=== PATIENT | female | born 1975 | race Caucasian/White ===

== ENCOUNTER 2019-12-19 12:28 | Emergency (ER) | payer OTHER, BC, SELFPAY ==
--- NOTE | ~2019-12-19 | XR_ITS ---
EXAMINATION: XR lumbar spine 2-3V DATE: 12/19/2019 13:15 INDICATION: Low back pain. Urinary incontinence. TECHNIQUE: Anteroposterior and lateral views of the lumbar spine, and cone-down lateral view of the l umbosacral junction were obtained. COMPARISON: CT abdomen and pelvis dated 11/17/2016 FINDINGS: Alignment is normal. Vertebral body heights are normal. No evident fractures. Mild disc height loss w ith small endplate osteophytes at T11-T12 through L1-L2 and additional mild disc height loss at L4-L5 . Mild bilateral sacroiliac osteoarthritis. Cholecystectomy clips in the right upper quadrant. Partia lly visualized IUD in the pelvis. IMPRESSION: 1. Mild lumbar and lower thoracic spondylosis. Reviewed, dictated and finalized at location A.
[2019-12-19 12:31] VITALS: BP 137/77; PULSE 100; RESP 16; TEMP 36.6; O2SAT 98
--- NOTE | 2019-12-19 12:55 | ED.BACK ---
HPI - Back Pain/Injury General Chief Complaint: Back Pain/Injury Stated Complaint: back pain with bowel/bladder loss of control Time Seen by Provider: 12/19/19 12:45 History of Present Illness HPI Narrative: Patient presents with her for low back pain and fecal incontinence. She had an injury 5 days ago when she was leaning over to the refrigerator to get out her lunch and felt a pop in her low back. She was able to get to her desk and sit down for a while. She gauges the pain as 8 out of 10 at that time. She saw her primary care physician 2 days later and got Vicodin and muscle relaxers. Since then she has had diarrhea with fecal incontinence, and urinary incontinence. She gauges her pain at 5 out of 10 right now. MD elicited complaint: back pain Onset (ago): day(s) (5) Timing: constant Severity: moderate Similar Symptoms Previously: No Quality: sharp Location: lumbar spine Radiation: none Exacerbating factors: movement Relieving factors: none Context: bending Related Data Home Medications Medication Instructions Recorded Confirmed baclofen mg 12/19/19 budesonide [Pulmicort Flexhaler] INHALATION 12/19/19 cetirizine mg 12/19/19 duloxetine mg PO 12/19/19 fluticasone propionate INTRANASAL 12/19/19 gabapentin 12/19/19 hydrocodone-acetaminophen 12/19/19 hydroxyzine HCl 12/19/19 levothyroxine 12/19/19 montelukast mg 12/19/19 omeprazole 12/19/19 ropinirole mg 12/19/19 sertraline mg 12/19/19 ziprasidone HCl 12/19/19 12/19/19 Allergies Allergy/AdvReac Type Severity Reaction Status Date / Time carbamazepine Allergy Unknown Rash Verified 12/19/19 12:36 Sulfa (Sulfonamide Allergy Unknown Rash Verified 12/19/19 12:36 Antibiotics) Review of Systems Review of Systems: Narrative: CONSTITUTIONAL: Denies fever, chills, or sweats. EYES: Denies visual changes, redness, or discharge. ENT: Denies rhinorrhea, congestion, sore throat, or otalgia. CARDIOVASCULAR: Denies chest pain, palpitations, or edema. RESPIRATORY: Denies cough or dyspnea. GASTROINTESTINAL: Denies abdominal pain, nausea, vomiting. She has diarrhea with fecal incontinence. GENITOURINARY: Denies dysuria or hematuria. SKIN: Denies rash or itching. MUSCULOSKELETAL: Denies joint pain, or myalgia. She has lumbar pain. NEUROLOGIC: Denies headache, numbness, or weakness. PSYCHIATRIC: Denies anxiety or depression. [facility] Family History Family History (Updated 11/14/16 @ 16:11 by DOCTOR UNKNOWN) Sibling Family history of rheumatoid arthritis Father Family history of congestive heart failure Other Diabetes mellitus Social History Social History Smoking status: Never smoker Alcohol intake: current Gender identity (if verbalized by the patient): Female Exam Narrative: Exam Narrative: GENERAL: Well-appearing, well-nourished, and in no acute distress. Morbid obesity. HEAD: Normocephalic, atraumatic. EYES: PERRLA and EOMI. ENT: Nares clear, no rhinorrhea or epistaxis. Mucous membranes moist. NECK: Supple. CHEST: Clear to auscultation. No respiratory distress. HEART: Regular rate and rhythm. No murmur heard. Normal peripheral pulses. ABDOMEN: Soft, nontender, nondistended, normal active bowel sounds. Normal rectal exam. EXTREMITIES: Normal range of motion. No edema. Tenderness in the lumbar area. SKIN: Warm, dry, no rash. NEURO: No focal deficits. Alert and oriented x3. PSYCH: Normal mood and affect. Const: General: no acute distress and alert Orientation/consciousness: patient oriented x3 Course Reevaluation(s) Reevaluation #1: I went into the room to explain to the patient and her that there were no compression fractures. I suggested that she had a tear of the tendon or ligament and that would take time to heal. I offered narcotic pain medicine which would also help with the loose stools. I gave her a work note for couple days off. She has a primary care doctor to follow-up with, and possibly g
[2019-12-19] MEDS: MORPHINE SULFATE 4 MG/ML INJ IV PUSH ×2 (13:17→13:59)
[2019-12-19 14:10] VITALS: BP 134/62; PULSE 78; RESP 18
== END 2019-12-19 14:13 | disposition home or self-care (01) ==
PROVIDERS: Emergency Provider Emergency Medicine
DX: R15.9 Full incontinence of feces (principal); R19.7 Diarrhea, unspecified
CPT/HCPCS: 72100; 96374; 96376; 99284; J2270

== ENCOUNTER 2020-03-27 18:05 | Emergency (ER) | payer BC, SELFPAY ==
[2020-03-27 18:07] VITALS: BP 147/83; PULSE 95; RESP 20; TEMP 36.2; O2SAT 100
--- NOTE | 2020-03-27 19:20 | PC.NURSE ---
Bedside report to KISHAN Lange, to continue care.
[2020-03-27 19:21] LABS: Basophils Absolute Auto 0.1 K/mm3 (0.0-0.1); Basophils Percent Auto 0.5 % (0.2-1.2); Eosinophils Absolute Auto 0.4 K/mm3 (0-0.3); Eosinophils Percent Auto 3.2 % (0-4.4); Hematocrit 43.3 % (37.0-47.0); Hemoglobin 14.1 g/dL (12.0-15.0); Immature Granulocyte Absolute 0.03 K/mm3 (0.00-0.031); Immature Granulocyte Percent A 0.2 % (0-0.5); Lymphocytes Absolute Auto 3.25 K/mm3 (0.9-3.2); Lymphocytes Percent Auto 26.6 % (18.3-44.2); Mean Corpuscular HGB Conc 32.6 g/dl (32-36); Mean Corpuscular Hemoglobin 27.7 pg (26-34); Mean Corpuscular Volume 85.1 fl (80-100); Monocytes Absolute Auto 0.8 K/mm3 (0.1-0.6); Monocytes Percent Auto 6.7 % (2.6-8.5); Neutrophils Absolute Auto 7.7 K/mm3 (1.3-6.7); Neutrophils Percent Auto 62.8 % (45.5-73.1); Platelet Count Result 278 k/mm3 (150-375); Red Blood Count 5.09 M/mm3 (4.2-5.4); Red Cell Distribution Width 13.1 % (11.5-14.5); White Blood Count 12.2 K/mm3 (4.5-10.0)
--- NOTE | 2020-03-27 19:29 | PC.NURSE ---
Assumed care of pt at this time. Report from KISHAN Marlow
[2020-03-27 19:33] LABS: Lactic Acid Reflex 1.5 mmol/L (0.7-2.1)
[2020-03-27 19:34] LABS: Alanine Aminotransferase 40 U/L (4-35); Albumin Level 4.8 g/dL (3.5-5.1); Alkaline Phosphatase 91 U/L (38-126); Anion Gap 10 mmol/L (8-16); Aspartate Amino Transferase 43 U/L (14-36); Bilirubin,Total 0.4 mg/dL (0.2-1.3); Blood Urea Nitrogen 10 mg/dL (7-17); Calcium 9.7 mg/dL (8.4-10.2); Carbon Dioxide 27 mmol/L (22-30); Chloride 99 mmol/L (98-107); Estimated Glomerular Filt Rate > 60; Glucose 121 mg/dL (65-105); Potassium 3.7 mmol/L (3.4-5.0); Sodium 136 mmol/L (137-145)
[2020-03-27 19:53] LABS: Erythrocyte Sedimentation Rate 20 mm/hr (0-20)
[2020-03-27 20:00] VITALS: BP 123/66; PULSE 84; RESP 19; O2SAT 100
[2020-03-27] MEDS: TETANUS,DIPHTHERIA,AC PERTUSSIS ADULT (0.5 ML) BOOSTRIX IM (20:04)
--- NOTE | 2020-03-27 20:10 | ED.GENADULT ---
HPI - General Adult General Chief complaint: Wound/Laceration Stated complaint: R LEG WOUND, DIABETIC Time Seen by Provider: 03/27/20 19:23 Source: patient History of Present Illness HPI narrative: Patient is a 44 y/o female complaining of right lower leg pain starting 2 weeks ago. She describes her pain as burning and rates it as 5/10. She states that dangling her foot down aggravates her pain. She has no fever, chills or vomiting. She states that she scratched her leg while shaving prior to onset of pain. Related Data Home Medications Medication Instructions Recorded Confirmed baclofen mg 12/19/19 budesonide [Pulmicort Flexhaler] INHALATION 12/19/19 cetirizine mg 12/19/19 duloxetine mg PO 12/19/19 fluticasone propionate INTRANASAL 12/19/19 gabapentin 12/19/19 hydrocodone-acetaminophen 12/19/19 hydroxyzine HCl 12/19/19 levothyroxine 12/19/19 montelukast mg 12/19/19 omeprazole 12/19/19 ropinirole mg 12/19/19 sertraline mg 12/19/19 ziprasidone HCl 12/19/19 12/19/19 Allergies Allergy/AdvReac Type Severity Reaction Status Date / Time carbamazepine Allergy Unknown Rash Verified 12/19/19 12:36 Sulfa (Sulfonamide Allergy Unknown Rash Verified 12/19/19 12:36 Antibiotics) Review of Systems Constitutional: Constitutional: Denies chills, Denies fever(s), Denies headache(s) and Denies weakness Eyes: Eyes: Denies blurry vision ENT: Denies headache(s) and Denies neck pain Cardiovascular: Cardiovascular: Denies chest pain and Denies dyspnea Respiratory: Respiratory: Denies cough and Denies dyspnea Gastrointestinal: Gastrointestinal: Denies abdominal pain, Denies diarrhea, Denies nausea and Denies vomiting Genitourinary: Genitourinary: Denies hematuria and Denies dysuria Musculoskeletal: Musculoskeletal: Denies back pain and Denies neck pain Integumentary/Breasts: Skin/Breast: Reports wounds (right lower anterior leg wound with redness) Neurologic: Denies headache(s) and Denies weakness [facility] Family History Family History Sibling Family history of rheumatoid arthritis Father Family history of congestive heart failure Other Diabetes mellitus Social History Social History Smoking status: Never smoker Alcohol intake: current Gender identity (if verbalized by the patient): Female Exam Const: General: no acute distress and well developed Orientation/consciousness: oriented to person, oriented to place, oriented to time and patient oriented x3 HENMT: Head: normocephalic Ears: external ears normal General nose exam: Normal external nose present Eyes: General: appearance normal, both eyes and all related structures Conjunctivae: conjunctivae normal Neck: Neck: normal visual inspection and full ROM Chest: Chest palpation & inspection: normal inspection of the chest and no tenderness Resp: Effort & Inspection: normal respiratory effort Auscultation: clear to auscultation bilaterally Cardio: Rate: regular rate Rhythm: regular rhythm GI: GI Palp: No abdominal tenderness and Yes Soft to palpation Skin: General skin exam: normal color, turgor normal and erythema (right lower leg erythema surrounding the wound) Wounds: wounds noted (anterior aspect of right lower leg, no drainage) Neuro: General: oriented to person, oriented to place, oriented to time and patient oriented x3 Cognition (Neuro): normal cognition Extrem: General: normal to inspection, full ROM and no pedal edema Psych: Appearance: grossly normal Mental Status: mental status grossly normal Affect: normal affect Course Vital Signs Vital signs: Vital Signs Temperature 36.2 C L 03/27/20 18:07 Pulse Rate 95 03/27/20 18:07 Respiratory Rate 20 03/27/20 18:07 Blood Pressure 147/83 H 03/27/20 18:07 Pulse Oximetry 100 03/27/20 18:07 Temperature 36.2 C L 03/27/20 18:07 Pulse Rate 84
[2020-03-27 21:00] VITALS: BP 130/62; PULSE 84; RESP 19; O2SAT 99
[2020-03-27] MEDS: KETOROLAC 30 MG/ML VIAL (*BKC) IV PUSH (21:31)
[2020-03-27 21:50] VITALS: BP 120/64; PULSE 84; RESP 19; O2SAT 98
== END 2020-03-27 21:50 | disposition home or self-care (01) ==
PROVIDERS: Emergency Provider Emergency Medicine
DX: L03.115 Cellulitis of right lower limb (principal); Z23 Encounter for immunization
CPT/HCPCS: 36415; 80053; 83605; 85025; 85652; 87040; 90471; 90715; 96365; 96375; 99284; J1885; J3370

== ENCOUNTER 2020-04-23 09:54 | Emergency (ER) | payer BC, SELFPAY ==
--- NOTE | ~2020-04-23 | XR_ITS ---
XR chest 1V portable DATE: 04/23/2020 10:24 INDICATION: Shortness of breath. Covid-positive patient. TECHNIQUE: Portable AP chest on 04/23/2020 at 1016 hours COMPARISON: 01/04/2019 PA and lateral chest FINDINGS: There are patchy bilateral infiltrates involving the mid and lower lung zones. Heart size is likely within normal range considering magnification associated with AP projection. There is chronic mild elevation of the right leaf of the diaphragm. No pleural effusion or pneumothor ax is evident. IMPRESSION: Patchy bilateral mid and lower lung infiltrates Reviewed, dictated and finalized at location A.
[2020-04-23 10:00] VITALS: BP 126/76; PULSE 90; RESP 22; TEMP 36.6; O2SAT 96
[2020-04-23 10:03] VITALS: O2SAT 97
--- NOTE | 2020-04-23 10:04 | ECG_ITS ---
Measurements Intervals [place] Rate: 91 P: 49 ND: 130 QRS: 41 QRSD: 101 T: -18 QT: 343 QTc: 423 Interpretive Statements SINUS RHYTHM BORDERLINE ST-T WAVE ABNORMALITY- ANTEROLAT/INF LEADS BASELINE WANDER- III, AVF BORDERLINE ECG Electronically Signed On 04-23-2020 14:57:31 CDT by Bala Banuelos D.O.
--- NOTE | 2020-04-23 10:25 | ED.GENADULT ---
HPI - General Adult General Chief complaint: Shortness of Breath/Dyspnea Stated complaint: + covid/SOB Time Seen by Provider: 04/23/20 09:58 Source: patient Mode of arrival: ambulatory Limitations: no limitations History of Present Illness HPI narrative: Patient is a 44-year-old female who presents to emergency department for continued COVID symptoms patient had been admitted and the ninth at an outside hospital with COVID and has been home and now she continues to feel weak dyspneic with headache and some loose stools. Patient has been taking medications as instructed. Patient denies vomiting. Patient lives at home with family Related Data Home Medications Medication Instructions Recorded Confirmed baclofen mg 12/19/19 budesonide [Pulmicort Flexhaler] INHALATION 12/19/19 cetirizine mg 12/19/19 duloxetine mg PO 12/19/19 fluticasone propionate INTRANASAL 12/19/19 gabapentin 12/19/19 hydrocodone-acetaminophen 12/19/19 hydroxyzine HCl 12/19/19 levothyroxine 12/19/19 montelukast mg 12/19/19 omeprazole 12/19/19 ropinirole mg 12/19/19 sertraline mg 12/19/19 ziprasidone HCl 12/19/19 12/19/19 Allergies Allergy/AdvReac Type Severity Reaction Status Date / Time carbamazepine Allergy Unknown Rash Verified 04/23/20 10:03 Sulfa (Sulfonamide Allergy Unknown Rash Verified 04/23/20 10:03 Antibiotics) Review of Systems Review of Systems: All systems reviewed & are unremarkable except as noted in HPI and below PMFSH Past Medical History Medical History (Updated 04/23/20 @ 12:08 by Shreyas Yin PA-C) Asthma Diabetes mellitus Fecal incontinence Lumbar pain Morbid obesity Family History Family History Sibling Family history of rheumatoid arthritis Father Family history of congestive heart failure Other Diabetes mellitus Social History Social History Smoking status: Never smoker Alcohol intake: current Gender identity (if verbalized by the patient): Female Exam Narrative: Exam Narrative: GENERAL: Well-appearing, morbid obesity, and in no acute distress. HEAD: Normocephalic, atraumatic. EYES: PERRLA and EOMI. ENT: Nares clear, no rhinorrhea or epistaxis. Mucous membranes moist. Oropharynx without tonsillar hypertrophy exudate or other lesions. NECK: Supple. No adenopathy or masses. CHEST: Diminished on auscultation. No respiratory distress. No wheezes rales or rhonchi HEART: Regular rate and rhythm. No murmur heard. Normal peripheral pulses. ABDOMEN: Soft, nontender, nondistended EXTREMITIES: Normal range of motion. No edema. SKIN: Warm, dry, no rash. NEURO: No focal deficits. Alert and oriented x3. Cranial nerves II through XII grossly intact PSYCH: Normal mood and affect. Course Course Emergency Course: Patient in the room in no distress resting comfortably no hypoxemia able to ambulate without becoming hypoxic. Patient will be discharged home will contact her primary care to set up for reevaluation. Patient was hydrated in the emergency department. Vital Signs Vital signs: Vital Signs Temperature 97.8 F 04/23/20 10:00 Pulse Rate 90 04/23/20 10:00 Respiratory Rate 22 H 04/23/20 10:00 Blood Pressure 126/76 04/23/20 10:00 Pulse Oximetry 96 04/23/20 10:00 Temperature 97.8 F 04/23/20 10:00 Pulse Rate 90 04/23/20 10:00 Respiratory Rate 22 H 04/23/20 10:00 Blood Pressure 126/76 04/23/20 10:00 Pulse Oximetry 97 04/23/20 10:03 Medical Decision Making [facility] Narrative Medical decision making narrative: Patient with COVID no concerning findings in the evaluation today patient able to ambulate without hypoxemia will be discharged home with instructions to quarantine at home and follow with primary care also given reasons to return patient is afebrile nontoxic-appearing in no distress without emesis Vital Signs Vital Sign
[2020-04-23 10:31] LABS: Basophils Percent Auto 0.3 % (0.2-1.2); Eosinophils Absolute Auto 0.1 K/mm3 (0-0.3); Eosinophils Percent Auto 1.1 % (0-4.4); Hematocrit 44.7 % (37.0-47.0); Hemoglobin 14.4 g/dL (12.0-15.0); Immature Granulocyte Absolute 0.03 K/mm3 (0.00-0.031); Immature Granulocyte Percent A 0.5 % (0-0.5); Lymphocytes Absolute Auto 1.53 K/mm3 (0.9-3.2); Lymphocytes Percent Auto 24.8 % (18.3-44.2); Mean Corpuscular HGB Conc 32.2 g/dl (32-36); Mean Corpuscular Hemoglobin 27.5 pg (26-34); Mean Corpuscular Volume 85.5 fl (80-100); Mean Platelet Volume 11.3 fl (7.4-10.4); Monocytes Absolute Auto 0.5 K/mm3 (0.1-0.6); Monocytes Percent Auto 7.8 % (2.6-8.5); Neutrophils Absolute Auto 4.1 K/mm3 (1.3-6.7); Neutrophils Percent Auto 65.5 % (45.5-73.1); Platelet Count Result 176 k/mm3 (150-375); Red Blood Count 5.23 M/mm3 (4.2-5.4); Red Cell Distribution Width 13.2 % (11.5-14.5); White Blood Count 6.2 K/mm3 (4.5-10.0)
[2020-04-23] MEDS: SODIUM CHLORIDE 0.9% IV 1,000 ML 999 ML IV CONT (10:35)
[2020-04-23 10:44] LABS: Lactic Acid Reflex 1.6 mmol/L (0.7-2.1)
[2020-04-23 10:51] LABS: Anion Gap 6 mmol/L (8-16); Blood Urea Nitrogen 10 mg/dL (7-17); CRP 4.7 mg/dL (<1.0); Calcium 9.1 mg/dL (8.4-10.2); Carbon Dioxide 28 mmol/L (22-30); Chloride 102 mmol/L (98-107); Estimated CRCL calculation 148 ml/min; Estimated Glomerular Filt Rate > 60; Glucose 164 mg/dL (65-105); Potassium 3.8 mmol/L (3.4-5.0); Sodium 136 mmol/L (137-145)
[2020-04-23 11:00] LABS: Troponin I < 0.012 ng/mL (0.000-0.034)
--- NOTE | 2020-04-23 12:06 | PC.NURSE ---
Pt ambulated to restroom and returned,spo2 remained at or above 95%.
[2020-04-23 12:07] VITALS: BP 144/90; PULSE 99; RESP 24; O2SAT 99
== END 2020-04-23 12:26 | disposition home or self-care (01) ==
PROVIDERS: Emergency Medicine Emergency Medical Services; Emergency Provider Emergency Medicine
DX: U07.1 COVID-19 (principal); E11.9 Type 2 diabetes mellitus without complications; E66.01 Morbid (severe) obesity due to excess calories; Z68.43 Body mass index [BMI] 50.0-59.9, adult; R94.31 Abnormal electrocardiogram [ECG] [EKG]
CPT/HCPCS: 36415; 71045; 80048; 83605; 84484; 85025; 86140; 93005; 96360; 99284; J7030

== ENCOUNTER 2020-08-10 20:10 | Emergency (ER) | payer BC, SELFPAY ==
--- NOTE | ~2020-08-10 | XR_ITS ---
EXAMINATION: XR foot RT min 3V EXAM DATE: 08/10/2020 20:35 INDICATION: Kicked contour yesterday, pain right 2nd 3rd 4th toes. TECHNIQUE: Right foot dorsoplantar, lateral and oblique projections obtained and reviewed. Compariso n is made to prior examination from 11/04/2016. FINDINGS: Right metatarsal bones unremarkable. There are no acute fractures or dislocations identifi ed. There is no subcutaneous gas. The soft tissue is unremarkable. There are no radiopaque foreig n bodies. IMPRESSION: 1. Right foot exam without acute osseous findings. Reviewed, dictated and finalized at location G. [employer]
[2020-08-10 20:13] VITALS: BP 135/82; PULSE 91; RESP 18; TEMP 35.7; O2SAT 100
--- NOTE | 2020-08-10 20:53 | ED.LOWEXIN ---
HPI - Extremity Injury (Lower) General Chief Complaint: Extremity Injury, Lower Stated Complaint: poss broken toes Time Seen by Provider: 08/10/20 20:20 Source: patient Mode of arrival: ambulatory Limitations: no limitations History of Present Illness HPI Narrative: 45-year-old with a history of diabetes here with complaints of injury to the right toes. Patient states that she accidentally hit the filing cabinet yesterday at work. She complains of second third fourth toe pain. She is able to walk . complaint: foot injury (right) Onset (ago): day(s) (1) Injury: Right: foot Type of Injury: blunt Place: work Relieving factors: nothing Exacerbating factors: nothing Context: direct blow Related Data Home Medications Medication Instructions Recorded Confirmed baclofen mg 12/19/19 budesonide [Pulmicort Flexhaler] INHALATION 12/19/19 cetirizine mg 12/19/19 duloxetine mg PO 12/19/19 fluticasone propionate INTRANASAL 12/19/19 gabapentin 12/19/19 hydrocodone-acetaminophen 12/19/19 hydroxyzine HCl 12/19/19 levothyroxine 12/19/19 montelukast mg 12/19/19 omeprazole 12/19/19 ropinirole mg 12/19/19 sertraline mg 12/19/19 ziprasidone HCl 12/19/19 12/19/19 Allergies Allergy/AdvReac Type Severity Reaction Status Date / Time carbamazepine Allergy Unknown Rash Verified 08/10/20 20:15 Sulfa (Sulfonamide Allergy Unknown Rash Verified 08/10/20 20:15 Antibiotics) Review of Systems Review of Systems: All systems reviewed & are unremarkable except as noted in HPI and below Constitutional: Constitutional: Reports no additional constitutional complaints Eyes: Eyes: Reports no additional eye complaints ENT: Reports system reviewed and no additional complaints, except as documented Cardiovascular: Cardiovascular: Reports no additional cardiovascular complaints Respiratory: Respiratory: Reports no additional respiratory complaints Gastrointestinal: Gastrointestinal: Reports no additional gastrointestinal complaints Musculoskeletal: Musculoskeletal: Reports as per HPI Neurologic: Reports system reviewed and no additional complaints, except as documented [facility] Past Medical History Medical History Asthma Diabetes mellitus Fecal incontinence Lumbar pain Morbid obesity Family History Family History Sibling Family history of rheumatoid arthritis Father Family history of congestive heart failure Other Diabetes mellitus Social History Social History Smoking status: Never smoker Alcohol intake: current Gender identity (if verbalized by the patient): Female Exam Narrative: Exam Narrative: GENERAL: Well-appearing,, and in no acute distress. HEAD: Normocephalic, atraumatic. EYES: PERRLA and EOMI NECK: Supple. CHEST: Clear to auscultation. No respiratory distress. HEART: Regular rate and rhythm. No murmur heard. Normal peripheral pulses.. EXTREMITIES: Normal range of motion. No edema. Examination of the right foot shows no evidence of any trauma ,no deformity SKIN: Warm, dry, no rash. NEURO: No focal deficits. Alert and oriented x3. PSYCH: Normal mood and affect. Course Course Emergency Course: Inform patient about her x-ray findings. Advised her to take Tylenol ibuprofen for pain. Vital Signs Vital signs: Vital Signs Temperature 35.7 C L 08/10/20 20:13 Pulse Rate 91 08/10/20 20:13 Respiratory Rate 18 08/10/20 20:13 Blood Pressure 135/82 08/10/20 20:13 Pulse Oximetry 100 08/10/20 20:13 Temperature 35.7 C L 08/10/20 20:13 Pulse Rate 91 08/10/20 20:13 Respiratory Rate 18 08/10/20 20:13 Blood Pressure 135/82 08/10/20 20:13 Pulse Oximetry 100 08/10/20 20:13 MDM - Extremity Injury (Lower) Imaging Data Radiologist's impression: ITS Impressions Foot X-Ray 08/10/20 20:36 IMPR
== END 2020-08-10 21:15 | disposition home or self-care (01) ==
PROVIDERS: Emergency Provider Family Medicine
DX: S90.121A Contusion of right lesser toe(s) without damage to nail, initial encounter (principal); W22.8XXA Striking against or struck by other objects, initial encounter; J45.909 Unspecified asthma, uncomplicated; E11.9 Type 2 diabetes mellitus without complications; E66.01 Morbid (severe) obesity due to excess calories; Z68.43 Body mass index [BMI] 50.0-59.9, adult
CPT/HCPCS: 73630; 99283

== ENCOUNTER 2021-11-30 18:14 | Emergency (ER) | payer BC, SELFPAY ==
--- NOTE | ~2021-11-30 | XR_ITS ---
EXAMINATION: XR foot LT min 3V DATE: 11/30/2021 18:56 INDICATION: Left foot pain, swelling and bruising post injury TECHNIQUE: Dorsoplantar, two oblique and lateral views of the chest foot were obtained. COMPARISON: None. FINDINGS: Alignment is normal. No fracture. Minimal to mild polyarticular osteoarthritis involving multiple kenroy nts in the mid and forefoot. Soft tissues are unremarkable. IMPRESSION: 1. No acute osseous abnormality. Reviewed, dictated and finalized at location A.
[2021-11-30 18:29] VITALS: BP 121/69; PULSE 79; RESP 16; TEMP 36.2; O2SAT 100
--- NOTE | 2021-11-30 19:15 | ED.LOWEXIN ---
HPI - Extremity Injury (Lower) General Chief Complaint: Extremity Injury, Lower Stated Complaint: toe pain Time Seen by Provider: 11/30/21 18:40 Source: patient History of Present Illness HPI Narrative: Patient presents with left fifth toe pain. Patient reports she was putting her shoes on in the middle the night slipped and struck her small toe into the ground she was monitoring her symptoms at home and was waiting for a ride to be evaluated in the ER. Reports over the course of the day her pain is getting progressively worse that is achy, constant, worse with walking around, radiated up her foot. She has any focal numbness or weakness. She was concerned that maybe she broke her toe Related Data Home Medications Medication Instructions Recorded Confirmed baclofen mg 12/19/19 budesonide [Pulmicort Flexhaler] INHALATION 12/19/19 cetirizine mg 12/19/19 duloxetine mg PO 12/19/19 fluticasone propionate INTRANASAL 12/19/19 gabapentin 12/19/19 hydrocodone-acetaminophen 12/19/19 hydroxyzine HCl 12/19/19 levothyroxine 12/19/19 montelukast mg 12/19/19 omeprazole 12/19/19 ropinirole mg 12/19/19 sertraline mg 12/19/19 ziprasidone HCl 12/19/19 12/19/19 Allergies Allergy/AdvReac Type Severity Reaction Status Date / Time carbamazepine Allergy Unknown Rash Verified 11/30/21 18:40 Sulfa (Sulfonamide Allergy Unknown Rash Verified 11/30/21 18:40 Antibiotics) Review of Systems Review of Systems: CONSTITUTIONAL: Denies fever, chills, or sweats. EYES: Denies visual changes, redness, or discharge. SKIN: Reports bruising to her left foot MUSCULOSKELETAL: Denies back pain, joint pain, or myalgia. NEUROLOGIC: Denies headache, numbness, dizziness, or weakness. PSYCHIATRIC: Denies anxiety or depression. [facility] Past Medical History Medical History Asthma Diabetes mellitus Fecal incontinence Lumbar pain Morbid obesity Family History Family History Sibling Family history of rheumatoid arthritis Father Family history of congestive heart failure Other Diabetes mellitus Social History Social History Smoking status: Never smoker Alcohol intake: current Gender identity (if verbalized by the patient): Female Exam Narrative: GENERAL: Well-appearing, well-nourished, and in no acute distress. HEAD: Normocephalic, atraumatic. EYES: PERRLA and EOMI. ENT: Nares clear, no rhinorrhea or epistaxis. Mucous membranes moist. EXTREMITIES: Normal range of motion. No edema. Ecchymosis noted to the fifth digit left foot with diffuse tenderness no obvious deformity SKIN: Warm, dry, no rash. NEURO: No focal deficits. Alert and oriented x3. PSYCH: Normal mood and affect. Course Reevaluation(s) Reevaluation #1: Patient resting comfortably results and plan reviewed with patient. Patient is comfortable outpatient plan. Date: 11/30/21 Time: 19:17 Vital Signs Vital signs: Vital Signs Temperature 36.2 C L 11/30/21 18:29 Pulse Rate 79 11/30/21 18:29 Respiratory Rate 16 11/30/21 18:29 Blood Pressure 121/69 11/30/21 18:29 Pulse Oximetry 100 11/30/21 18:29 Temperature 36.2 C L 11/30/21 18:29 Pulse Rate 79 11/30/21 18:29 Respiratory Rate 16 11/30/21 18:29 Blood Pressure 121/69 11/30/21 18:29 Pulse Oximetry 100 11/30/21 18:29 MDM - Extremity Injury (Lower) MDM Narrative Medical decision making narrative: H&P as above, vss, pt looks clinically well, exam without obvious deformity or focal neurological deficits, imaging without acute process, additional labs/img considered, symptomatic relief available as needed, on reevaluation pt continues to looks clinically well. Suspect soft tissue contusion, dns fracture, dislocation, major neurovascular compromise plan to tx/monitor as op w/ pcm f/u findings/plan discussed with pt,
== END 2021-11-30 19:35 | disposition home or self-care (01) ==
PROVIDERS: Emergency Provider Emergency Medicine
DX: S90.122A Contusion of left lesser toe(s) without damage to nail, initial encounter (principal); J45.909 Unspecified asthma, uncomplicated; E11.9 Type 2 diabetes mellitus without complications; E66.01 Morbid (severe) obesity due to excess calories; Z68.43 Body mass index [BMI] 50.0-59.9, adult; W22.8XXA Striking against or struck by other objects, initial encounter
CPT/HCPCS: 73630; 99283

== ENCOUNTER 2021-12-15 14:15 | Emergency (ER) | payer BC, SELFPAY ==
--- NOTE | ~2021-12-15 | XR_ITS ---
XR toe 2nd LT min 2V DATE: 12/15/2021 14:31 INDICATION: Second toe injury TECHNIQUE: 4 views COMPARISON: 11/30/2021 left foot FINDINGS: No fracture or dislocation, periosteal reaction or IMPRESSION: No significant abnormality Reviewed, dictated and finalized at location A. IMPRESSION: No significant abnormality
--- NOTE | 2021-12-15 14:35 | ED.GENADULT ---
HPI - General Adult General Chief complaint: Unspecified Stated complaint: left 2nd toe injury Time Seen by Provider: 12/15/21 14:20 History of Present Illness HPI narrative: 46-year-old female presents to the emergency room for evaluation of a possible patient left second toe. Patient denies injury or trauma. Patient noted that her toes looked kind of weird this morning when she woke up. Patient states she is got a history of neuropathy and fibromyalgia, and so sometimes cannot feel pain. Patient states that she is got full range of motion of her toe. Related Data Home Medications Medication Instructions Recorded Confirmed baclofen mg 12/19/19 budesonide [Pulmicort Flexhaler] INHALATION 12/19/19 cetirizine mg 12/19/19 duloxetine mg PO 12/19/19 fluticasone propionate INTRANASAL 12/19/19 gabapentin 12/19/19 hydrocodone-acetaminophen 12/19/19 hydroxyzine HCl 12/19/19 levothyroxine 12/19/19 montelukast mg 12/19/19 omeprazole 12/19/19 ropinirole mg 12/19/19 sertraline mg 12/19/19 ziprasidone HCl 12/19/19 12/19/19 Allergies Allergy/AdvReac Type Severity Reaction Status Date / Time carbamazepine Allergy Unknown Rash Verified 11/30/21 18:40 Sulfa (Sulfonamide Allergy Unknown Rash Verified 11/30/21 18:40 Antibiotics) Review of Systems Review of Systems: CONSTITUTIONAL: Denies fever, chills, or sweats. EYES: Denies visual changes, redness, or discharge. ENT: Denies rhinorrhea, congestion, sore throat, or otalgia. CARDIOVASCULAR: Denies chest pain, palpitations, or edema. RESPIRATORY: Denies cough or dyspnea. GASTROINTESTINAL: Denies abdominal pain, nausea, vomiting, or diarrhea. GENITOURINARY: Denies dysuria or hematuria. SKIN: Denies rash or itching. MUSCULOSKELETAL: Reports left toe dislocation NEUROLOGIC: Denies headache, numbness, dizziness, or weakness. PSYCHIATRIC: Denies anxiety or depression. [facility] Past Medical History Medical History Asthma Diabetes mellitus Fecal incontinence Lumbar pain Morbid obesity Family History Family History Sibling Family history of rheumatoid arthritis Father Family history of congestive heart failure Other Diabetes mellitus Social History Social History Smoking status: Never smoker Alcohol intake: current Gender identity (if verbalized by the patient): Female Exam Narrative: GENERAL: Well-appearing, well-nourished, and in no acute distress. HEAD: Normocephalic, atraumatic. EYES: PERRLA and EOMI. CHEST: Clear to auscultation. No respiratory distress. No wheezes rales or rhonchi HEART: Regular rate and rhythm. No murmur heard. Normal peripheral pulses. ABDOMEN: Soft, nontender, obese, nondistended, normal active bowel sounds. EXTREMITIES: Normal range of motion. No edema. Left foot, second toe: No acute bony abnormality. No obvious subluxation. No ecchymosis. Neurovascular is intact SKIN: Warm, dry, no rash. NEURO: No focal deficits. Alert and oriented x3. PSYCH: Normal mood and affect. Discharge Plan Discharge Clinical Impression: Injury of left toe Qualifiers: Encounter type: initial encounter Qualified Code(s): S99.922A - Unspecified injury of left foot, initial encounter Patient Disposition: Home, Self-Care Condition: Stable Instructions: Antibiotic Form, Metatarsalgia (DC) Prescriptions: No Action cetirizine 10 mg tablet RF: 0 hydrocodone-acetaminophen 5-325 mg tablet RF: 0 ropinirole 3 mg tablet RF: 0 sertraline 100 mg tablet RF: 0 baclofen 10 mg tablet RF: 0 levothyroxine 50 mcg tablet RF: 0 gabapentin 300 mg capsule RF: 0 omeprazole 20 mg capsule,delayed release(DR/EC) RF: 0 montelukast 10 mg tablet RF: 0 hydroxyzine HCl 25 mg tablet
== END 2021-12-15 15:02 | disposition home or self-care (01) ==
PROVIDERS: Emergency Provider Nurse Practitioner Family
DX: S99.922A Unspecified injury of left foot, initial encounter (principal); E11.40 Type 2 diabetes mellitus with diabetic neuropathy, unspecified; J45.909 Unspecified asthma, uncomplicated; E66.01 Morbid (severe) obesity due to excess calories; Z68.42 Body mass index [BMI] 45.0-49.9, adult; M79.7 Fibromyalgia; X58.XXXA Exposure to other specified factors, initial encounter
CPT/HCPCS: 73660; 99283

== ENCOUNTER 2024-03-27 00:05 | Emergency (ER) | payer BC, SELFPAY ==
--- NOTE | ~2024-03-27 | XR_ITS ---
EXAMINATION: XR toe 5th RT min 2V DATE: 03/27/2024 02:53 INDICATION: Right fifth toe pain. TECHNIQUE: 3 views of right fifth toe were obtained. COMPARISON: Right foot radiographs 08/10/2020 FINDINGS: Bone alignment is normal. No acute fracture. There is an old healed fracture of tuft of fif th distal phalanx. There is mild osteoarthritis of fifth distal interphalangeal joint. IMPRESSION: 1. No acute fracture. Reviewed, dictated and finalized at location A. IMPRESSION: 1. No acute fracture.
[2024-03-27 00:09] VITALS: BP 123/63; PULSE 74; RESP 18; TEMP 36.6; O2SAT 99
[2024-03-27] MEDS: HYDROcodone/acetaminophen (*CRX) 5-325 MG TABLET 1 TAB PO (04:06)
--- NOTE | 2024-03-27 04:35 | ED.GENADULT ---
HPI - General Adult General Chief complaint: Extremity Problem,Nontraumatic Stated complaint: toe pain Time Seen by Provider: 03/27/24 03:47 History of Present Illness HPI narrative: patient is 48-year-old female who presents emergency department with chief complaint of right 5th toe ulceration. The patient reports that she had some friction between her 4th and 5th digit and reports she has a small ulceration the patient reports she has seen her mate fourth but reports the area is painful. Patient reports no new trauma denies foreign body Related Data Home Medications Medication Instructions Recorded Confirmed baclofen 10 mg tablet mg 12/19/19 budesonide 90 mcg/actuation breath inhalation 12/19/19 activated powder inhaler (Pulmicort Flexhaler) cetirizine 10 mg tablet mg 12/19/19 duloxetine 20 mg capsule,delayed mg PO 12/19/19 release fluticasone propionate 50 intranasal 12/19/19 mcg/actuation nasal spray,suspension gabapentin 300 mg capsule 12/19/19 hydrocodone 5 mg-acetaminophen 325 12/19/19 mg tablet hydroxyzine HCl 25 mg tablet 12/19/19 levothyroxine 50 mcg tablet 12/19/19 montelukast 10 mg tablet mg 12/19/19 omeprazole 20 mg capsule,delayed 12/19/19 release ropinirole 3 mg tablet mg 12/19/19 sertraline 100 mg tablet mg 12/19/19 ziprasidone HCl 60 mg capsule 12/19/19 12/19/19 Allergies Allergy/AdvReac Type Severity Reaction Status Date / Time carbamazepine Allergy Unknown Rash Verified 11/30/21 18:40 Sulfa (Sulfonamide Allergy Unknown Rash Verified 11/30/21 18:40 Antibiotics) amoxicillin Allergy Rash Verified 03/27/24 04:54 cephalexin Allergy Rash Verified 03/27/24 04:54 ciprofloxacin Allergy Rash Verified 03/27/24 04:54 doxycycline AdvReac Rash Verified 03/27/24 04:54 Review of Systems Review of Systems: A 10 system review of systems was completed on the patient and is negative except for what is stated in the HPI. Nursing and ancillary documentation was reviewed. [facility] Past Medical History Medical History Asthma Diabetes mellitus Fecal incontinence Lumbar pain Morbid obesity Family History Family History Sibling Family history of rheumatoid arthritis Father Family history of congestive heart failure Other Diabetes mellitus Social History Social History Smoking status: Never smoker Alcohol intake: current Gender identity (if verbalized by the patient): Female Exam Narrative: GENERAL: Well-appearing, well-nourished, and in no acute distress. HEAD: Normocephalic, atraumatic. EYES: PERRLA and EOMI. ENT: Nares clear, no rhinorrhea or epistaxis. Mucous membranes moist. NECK: Supple. CHEST: Clear to auscultation. No respiratory distress. HEART: Regular rate and rhythm. No murmur heard. Normal peripheral pulses. ABDOMEN: Soft, nontender, nondistended, normal active bowel sounds. EXTREMITIES: Normal range of motion. No edema. SKIN: Warm, dry, no rash. small ulceration present in the medial aspect of the left 5th digit of the right foot. There is no purulent drainage there is no crepitance there is no necrotic tissue NEURO: No focal deficits. Alert and oriented x3. PSYCH: Normal mood and affect. Course Vital Signs Vital signs: Vital Signs Temperature 36.6 C 03/27/24 00:09 Pulse Rate 74 03/27/24 00:09 Respiratory Rate 18 03/27/24 00:09 Blood Pressure 123/63 03/27/24 00:09 Pulse Oximetry 99 03/27/24 00:09 Oxygen Delivery Room Air 03/27/24 00:09 Temperature 36.6 C 03/27/24 00:09 Pulse Rate 62 03/27/24 04:51 Respiratory Rate 14 03/27/24 04:51 Blood Pressure 96/70 L 03/27/24 04:51 Pulse Oximetry 100 03/27/24 04:51 Oxygen Delivery Room Air 03/27/24 00:09 Medical Decision Making MDM Narrat
[2024-03-27 04:51] VITALS: BP 96/70; PULSE 62; RESP 14; O2SAT 100
[2024-03-27 04:57] LABS: Glucose Point of Care 73 mg/dl (65-105)
== END 2024-03-27 05:10 | disposition home or self-care (01) ==
PROVIDERS: Emergency Provider Emergency Medicine
DX: E11.621 Type 2 diabetes mellitus with foot ulcer (principal); L97.529 Non-pressure chronic ulcer of other part of left foot with unspecified severity; J45.909 Unspecified asthma, uncomplicated; E66.01 Morbid (severe) obesity due to excess calories; Z68.29 Body mass index [BMI] 29.0-29.9, adult; Z79.899 Other long term (current) drug therapy
CPT/HCPCS: 73660; 82948; 99283; A9270

== ENCOUNTER 2024-05-19 03:36 | Emergency (ER) | payer BC, SELFPAY ==
[2024-05-19 03:36] VITALS: BP 107/75; PULSE 61; RESP 11; TEMP 36.4; O2SAT 100
--- NOTE | 2024-05-19 04:00 | ED.FALL ---
HPI - Fall General Chief Complaint: Fall Stated Complaint: R face and hip pain s/p fall Time Seen by Provider: 05/19/24 03:38 History of Present Illness HPI Narrative: Patient is a 48-year-old female who presents to the emergency department this morning status post fall that occurred at home. Patient states that she slipped on something on the ground and fell forward landing on her right side. Patient admits that she did hit the right side of her head on the ground. Patient is currently complaining of right-sided jaw pain and right hip pain. Patient states that she was able to get herself back up and walk after the fall without any difficulty. Complains that the right hip pain is mild and feels as though she may have just bruised her lateral right upper thigh. Patient admits that walking and putting weight on her right lower extremity does not illicit pain. Patient denies any loss of consciousness and denies any near syncopal episodes stating that she was not lightheaded or dizzy prior to the fall admitting that the fall is purely mechanical. Patient denies any additional symptoms or concerns at this time. Related Data Home Medications Medication Instructions Recorded Confirmed baclofen 10 mg tablet mg 12/19/19 budesonide 90 mcg/actuation breath inhalation 12/19/19 activated powder inhaler (Pulmicort Flexhaler) cetirizine 10 mg tablet mg 12/19/19 duloxetine 20 mg capsule,delayed mg PO 12/19/19 release fluticasone propionate 50 intranasal 12/19/19 mcg/actuation nasal spray,suspension gabapentin 300 mg capsule 12/19/19 hydrocodone 5 mg-acetaminophen 325 12/19/19 mg tablet hydroxyzine HCl 25 mg tablet 12/19/19 levothyroxine 50 mcg tablet 12/19/19 montelukast 10 mg tablet mg 12/19/19 omeprazole 20 mg capsule,delayed 12/19/19 release ropinirole 3 mg tablet mg 12/19/19 sertraline 100 mg tablet mg 12/19/19 ziprasidone HCl 60 mg capsule 12/19/19 12/19/19 Allergies Allergy/AdvReac Type Severity Reaction Status Date / Time carbamazepine Allergy Unknown Rash Verified 05/19/24 03:43 Sulfa (Sulfonamide Allergy Unknown Rash Verified 05/19/24 03:43 Antibiotics) amoxicillin Allergy Rash Verified 05/19/24 03:43 cephalexin Allergy Rash Verified 05/19/24 03:43 ciprofloxacin Allergy Rash Verified 05/19/24 03:43 doxycycline AdvReac Rash Verified 05/19/24 03:43 Review of Systems Review of Systems: All systems are reviewed and are negative unless stated otherwise in the HPI. [facility] Past Medical History Medical History Asthma Diabetes mellitus Fecal incontinence Lumbar pain Morbid obesity Family History Family History Sibling Family history of rheumatoid arthritis Father Family history of congestive heart failure Other Diabetes mellitus Social History Social History Smoking status: Never smoker Alcohol intake: current Gender identity (if verbalized by the patient): Female Exam Narrative: General: Alert, awake, afebrile, in no acute distress. HEENT: PERRL, no rhinorrhea, no post nasal drip, oropharynx clear. Cardiovascular: Regular rate and rhythm, no murmurs, rubs or gallops, no peripheral edema. Respiratory: Clear to auscultation bilaterally, no tachypnea, no wheezing, no rhonchi, no rubs, no respiratory distress. Abdomen: Soft, nontender, nondistended, no rebound, no guarding, no peritoneal signs. Musculoskeletal: No joint swelling or deformity, normal muscle tone, no midline tenderness to palpation over the cervical, thoracic or lumbar spine, no step-offs or deformities, intact bilateral lower extremity hip flexion the knee extensions without any pain. Skin: No rashes or petechia, no signs of infection. Psychiatric: Alert and oriented, normal behavior and judgment for situation. Neurological: Alert
--- NOTE | 2024-05-19 04:25 | PC.NURSE ---
This Rn attempted to get IV access on pt at this time. This RN attempted twice and both veins blew. bridge construction inspector Ana Luisa was called to try and attempt as well. bridge construction inspector had no luck either. Dr. Austin notified. Dr Austin verbally orders to wait for results of CT scan and just to monitor her blood pressures. 0425: ct scan goes into pt room and pt refuses to get ct scans done and states I feel better . Dr. Austin notified and spoke wit pt stating that pt can go.
[2024-05-19 04:39] VITALS: BP 96/74; PULSE 61; RESP 18; O2SAT 100
== END 2024-05-19 04:39 | disposition home or self-care (01) ==
LOC: ANHED 04:31
PROVIDERS: Emergency Provider Emergency Medicine
DX: S09.93XA Unspecified injury of face, initial encounter (principal); S79.911A Unspecified injury of right hip, initial encounter; J45.909 Unspecified asthma, uncomplicated; E11.9 Type 2 diabetes mellitus without complications; E66.01 Morbid (severe) obesity due to excess calories; Z68.28 Body mass index [BMI] 28.0-28.9, adult; Z79.899 Other long term (current) drug therapy; W01.0XXA Fall on same level from slipping, tripping and stumbling without subsequent striking against object, initial encounter
CPT/HCPCS: 99282

== ENCOUNTER 2025-01-31 09:25 | Emergency (ER) | payer MEDICARE, SELFPAY ==
--- NOTE | ~2025-01-31 | XR_ITS ---
CHEST RADIOGRAPH CLINICAL HISTORY: pain radiating to right jaw . COMPARISON: 04/23/2020 and 01/04/2019 TECHNIQUE: Single portable view of the chest. FINDINGS The cardiomediastinal silhouette is unremarkable. The lungs are clear. IMPRESSION: No focal infiltrate or effusion. Reviewed, dictated and finalized at location A.
[2025-01-31 09:27] VITALS: BP 111/63; PULSE 72; RESP 18; TEMP 36.3; O2SAT 100
--- OUTSIDE RECORDS SUMMARY | 2025-01-31 12:13 | XMS_ITS | Clinical Summary ---
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 Active hydrOXYzine pamoate (VISTARIL) 25 mg capsule 03/06/20 17 Active ranibizumab (LUCENTIS VTRE) by Intravitreal route every 30 days. Active sertraline (ZOLOFT) 25 mg tablet Take 25 mg by mouth daily. Active omeprazole (PriLOSEC) 20 mg Capsule, Delayed Release(E.C.)Rocio cations:Gastroeso phageal reflux disease without esophagitis TAKE 1 CAPSULE BY MOUTH ONCE DAILY 90 Capsule 3 03/29/20 19 Active gabapentin (NEURONTIN) 100 mg capsuleIndication s:Numbness and tingling TAKE 1 CAPSULE BY MOUTH IN THE MORNING AND THEN ONE CAPSULE AT NOON 60 Capsule 6 04/27/20 19 Active LEVOTHYROXINE 50 mcg tabletIndications :Hypothyroidism, unspecified type TAKE 1 TABLET BY MOUTH ONCE DAILY IN THE MORNING 30 Tablet 11 05/24/20 19 Active rOPINIRole (REQUIP) 3 mg Tablet TAKE 1 TABLET BY MOUTH ONCE DAILY 1-3 HOURS PRIOR TO BEDTIME 90 Tablet 1 09/23/19 20 Active albuterol sulfate 90 mcg/actuation metered powder inhalerIndication s:Shortness of breath Take 2 Puffs by inhalation every 6 hours as needed for Shortness of Breath. 1 Inhaler 1 10/21/19 20 Active fluticasone propionate (FLONASE) 50 mcg/spray [place], Suspension nasal inhalerIndication s:Shortness of breath Administer 2 Sprays in each nostril daily. 16 Gram 1 10/21/19 20 Active budesonide (PULMICORT) 90 mcg/Inhalation Aerosol Powdr Breath ActivatedIndicati ons:Asthma, unspecified asthma severity, unspecified whether complicated, unspecified whether persistent Take 2 Puffs by inhalation 2 times daily. 1 Each 1 11/02/19 20 Active ziprasidone (GEODON) 60 mg Capsule TAKE 2 CAPSULES BY MOUTH IN THE EVENING WITH FOOD 11/13/19 20 Active baclofen (LIORESAL) 10 mg tabletIndications :Low back strain, initial encounter Take 1 Tablet (10 mg) by mouth 3 times daily as needed for Pain. 45 Tablet 1 12/16/19 20 Active HYDROcodone-aceta minophen (NORCO) 5-325 mg tabletIndications :Low back strain, initial encounter Take 1 Tablet by mouth every 6 hours as needed for Pain, Moderate or Pain, Severe. Max Daily Amount: 4 Tablets 20 Tablet 12/16/19 20 Active DULoxetine (CYMBALTA) 20 mg Capsule, Delayed Release(E.C.)Rocio cations:Neuropath y Take 2 capsules by mouth once daily 180 Capsule 03/01/20 20 Active gabapentin (NEURONTIN) 300 mg capsuleIndication s:Neuropathy TAKE 1 CAPSULE BY MOUTH THREE TIMES DAILY 90 Capsule 04/05/20 20 Active montelukast (SINGULAIR) 10 mg tabletIndications :RAD (reactive airway disease), mild persistent, uncomplicated TAKE 1 TABLET BY MOUTH ONCE DAILY AT BEDTIME 90 Tablet 3 08/07/19 21 Active Allergy Relief, cetirizine, 10 mg tabletIndications :Shortness of breath Take 1 tablet by mouth once daily 90 Tablet 07/24/20 21 Active Active Problems Patient Care Coordination No te Formatting of this note migh t be different from the original. KALEE 01/06/18 Psychiatry- Dr. Arpan Castro [phone] Problem Noted Date Diagnosed Date Bipolar I disorder, most rec ent episode (or current) manic, moderate 04/16/2018 Exudative age-related macula r degeneration of both eyes with active choroidal neovascularization 12/23/2017 Drug rash 02/28/2017 Vitamin D deficiency 01/26/2016 Hypothyroidism 01/26/2016 ISIS (obstructive sleep apnea) 04/18/2015 Bipolar disorder 08/20/2013 Insomnia 08/20/2013 Morbid obesity 08/20/2013 Backache, unspecified 04/10/2007 Resolved Problems Problem Noted Date Diagnosed Date Resolved Date Acute sinusitis, unspecified 08/01/2005 03/28/2011 ENLARGEMENT LYMPH NODES 11/22/200408/04 Dizziness and giddiness 10/11/200408/04 Immunizations Immunization Administration Dates Next Due (ADACEL/BOOSTRIX)(10 YR UP) TDAP VACCINE, 0.5ML, IM 08/20/2013 (M-M-R II/PRIORIX)(12 MO UP) MEASLES, MUMPS AND RUBELLA VIRUS VACCINE, 0.5 ML IM/SUBCUT 08/20/2013 (RECOMBIVAX HB/ENGERIX-B)(11 YR UP) HEPATITIS B VACCINE 10 MCG/1 ML OR 20 MCG/1 ML ADOL OR ADULT 2 - 3 DOSE PF, IM 08/20/2013 (VARZIG) VARICELLA ZOSTER IM MUNE GLOBULIN 125 IU/1.2 ML, IM 08/20/2013 INFLUENZA VACCINE QUADRIVALENT 3 YR UP PF IM Influenza Seasonal Unspecified Formulation IM ,05/18/2013 Skin Test TB 08/23/2013 Family History Medical History Relation Name Comments Other Brother 1 bipolar Healthy Brother 2 Diabetes Father Heart Disease Father Heart Disease Maternal Grandmother Hypertension Maternal Grandmother Diabetes Paternal Grandmother Healthy Sister Relation Name Status Comments Brother 1 Alive Brother 2 Alive Father Alive Maternal Grandmother Mother Alive Paternal Grandmother Sister Alive Social History Tobacco Use Types Packs/Day Years Used Date Smoking Tobacco: Never Smokeless Tobacco: Never Tobacco Cessation:Counseling Given: No Alcohol Use Standard Drinks/Week Comments Yes 0 (1 standard drink = 0.6 oz pur e alcohol) 1x/month Comments No Sex and Gender Information Value Date Recorded Sex Assigned at Not on file 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 Gender Identity Not on file Sexual Orientation Not on file Occupation Industry Job Start Date Job End Date Not on file Not on file Not on file Not on file Last Filed Vital Signs Vital Sign Reading Time Taken Comments Blood Pressure 123/83 12/22/2019 3:07 PM CDT Pulse 86 12/22/2019 3:07 PM CDT Temperature 36.4 C (97.6 F) 12/22/2019 3:07 PM CDT Respiratory Rate 16 12/22/2019 3:07 PM CDT Oxygen Saturation 97% 12/22/2019 3:07 PM CDT Inhaled Oxygen Concentration - - Weight 152.2 kg (335 lb 8 oz) 12/22/2019 3:07 PM CDT Height 162.6 cm (5' 4) 12/22/2019 3:07 PM CDT Body Mass Index 57.59 12/22/2019 3:07 PM CDT Plan of Treatment Health Maintenance Due Date Last Done Comments HEPATITIS B VACCINES (2 of 3 - 19+ 3-dose series) 09/17/2013 08/20/2013 BREAST CANCER SCREENING 2016 PAP SMEAR 11/03/2017 11/03/2014 CERVICAL CANCER SCREENING 11/04/2019 HPV/Cotest (21-29) 11/04/2019 11/03/2014 HPV/Cotest (30-65) 11/04/2019 11/03/2014 COLORECTAL SCREENING 2021 Colorectal Cancer Screening 2021 FIT-DNA Q 3 years 2021 FIT/FOBT Q 1 year 2021 Flex Sig/CT Colonography Q 5 years 2021 Pre-Diabetes and Diabetes Screening 12/22/2022 12/23/2019, 01/17/2018, 05/07/2017, Additional history exists DTAP/TDAP/TD VACCINES (2 - T d or Tdap) 08/20/2023 08/20/2013 INFLUENZA VACCINE (#1) 2024 9, 08/25/2017, 07/10/2016, Additional history exists Procedures Procedure Name Priority Date/Time Associated Diagnosis Comments HEMOGLOBIN A1C Routine 12/23/2019 4:51 AM CDT CERV/VAG CYTO SCREEN PAP RLFX HPV Routine 11/03/2014 12:00 AM CDT from Last 3 Months or Most Recently Relevant to Health Maintenance Results * (ABNORMAL) HEMOGLOBIN A1C (12/23/2019 4:51 AM CDT) HEMOGLOBIN A1C 6.6(H) <5.7 % of total Hgb [facility] Comment: For someone without known diabetes, a hemoglobin A1c value of 6.5% or greater indicates that they may have diabetes and this should be confirmed with a follow-up test. For someone with known diabetes, a value <7% indicates that their diabetes is well controlled and a value greater than or equal to 7% indicates suboptimal control. A1c targets should be individualized based on duration of diabetes, age, comorbid conditions, and other considerations. Currently, no consensus exists regarding use of hemoglobin A1c for diagnosis of diabetes for children. Test Performed at: [facility] [address] [place] [address] Francisco Cardenas D.O., MPH 12/23/2019 4:51 AM CDT us Historical Provider CHEMISTRY ORDERABLES Edited Result - Final [facility] [address] [place] [address] * CERV/VAG CYTOPATH, THIN PREP IMAGR RFLX HPV (CP) (11/03/2014 12:00 AM CDT) CLINICAL INFORMATION [facility] Comment:intrauterine contrac eptive device LAST MENSTRUAL PERIOD [facility] Comment:11/03/10 PREV PAP: [facility] Comment:11/03/12 NIL PREV BX: [facility] Comment:Information not prov ided SOURCE [facility] Comment:Endocervix ADEQUACY: [facility] Comment: Satisfactory for evaluation. Endocervical/transformation zone component present. INTERPRETATION [facility] Comment:Negative for intraep ithelial lesion or malignancy. COMMENT [facility] Comment: This Pap test has been evaluated with computer assisted technology. STOCK HANGER: [facility] Comment: LMT, CT(ASCP) Test Performed at: [facility] [address] [place] [address] ROSALINE GONZALEZ MD 11/03/2014 us Da Gramajo MD PATHOLOGY/CYTOLOGY ORDERABLE S Final Result [facility] [address] [place] [address] from Last 3 Months or Most Recently Relevant to Health Maintenance Insurance Advance Directives For more information, please contact: [phone] * Full Code (Latest Code Status on File) Date Activated Date Inactivated Comments 02/28/2017 4:22 PM 03/03/2017 5:32 PM
--- OUTSIDE RECORDS SUMMARY | 2025-01-31 12:13 | XMS_ITS | Encounter Summary ---
Author Organization [facility] Address 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
--- OUTSIDE RECORDS SUMMARY | 2025-01-31 12:13 | XMS_ITS | Encounter Summary ---
[facility] Organization [facility] Address [address] [place] [address] Care Team Providers Care [employer] Specialist Name Role Phone Juvenal Sams MD Primary Care Prov ider Encounter Details Date Type Department Care Team (Latest Contact Info) Description 04/15/2006 Outpatient Historical [facility] (Excluded Provider) Salima Grande MD [address] [place] [address] Bipolar Affective, Depress, Unspec (CMS/HCC) (Primary Dx) Social History Tobacco Use Types Packs/Day Years Used Date Smoking Tobacco: Never Assessed Comments Unknown Sex and Gender Information Value Date Recorded Sex Assigned at Not on file Legal Sex Female 4:45 AM [facility] Gender Identity Not on file Sexual Orientation Not on file documented as of this encounter Plan of Treatment Not on file documented as of this encounter Visit Diagnoses Diagnosis Bipolar I disorder, most recent episode (or current) depressed, unspecified (CMS/HCC)- Primary Bipolar I disorder, most recent episode (or current) depressed, unspecified documented in this encounter Care Teams [employer] Relationship Specialty Start Date End Date Juvenal Sams MD PCP - General Family Practice 03/13/20 05/10/20 documented as of this encounter
--- OUTSIDE RECORDS SUMMARY | 2025-01-31 12:13 | XMS_ITS | Patient Health Record ---
Author Organization [facility] Mobile Address [address] [facility] [address] [place] [address] Care Team Providers Care Communication Center Operator Name Role Phone Daysi Al Primary Care Provider Zoila Ayoub Unavailable [phone] Colin Styles Unavailable [phone] Allergies Allergen (clinical drug ingredient) Drug/Non Drug Allergy documented on EMR Reaction Allergy Type Onset Date Status TEGretol rash Drug Allergy Active amoxicillin Amoxicillin rash Drug Allergy Act yari doxycycline Doxycycline rash Drug Allergy Act yari Substance with sulfonamide structure and antibacterial mechanism of action (substance) Sulfa Antibiotics rash Drug Allergy Active Results Component Value Reference Range Notes UDT Reviewed date:09/29/2024 10:20:23 AM Interpretation: Performing Lab: Notes/Report: THC NEG 0 - 50 ng/ml Cocaine NEG 0 - 300 ng/ml Amphetamine NEG 0 - 1000 ng/ml Buprenorphine (BUP) NEG 0 - 10 ng/ml Secobarbital (Bar) NEG 0 - 300 ng/ml Oxazepam (BZO) NEG 0 - 300 ng/ml 8-pfcxgsjcsj-9,7-xzksanpe-1,3-diphenylpyrrolidine (KEL P) NEG 0 - 300 ng/ml Methamphetamine (MET) NEG 0 - 1000 ng/ml Methylenedioxymethamphetamine (MDMA) NEG 0 - 500 ng/ml Morphine (MOP 300/[id number]) NEG 0 - 300 ng/ml Methadone (MTD) NEG 0 - 300 ng/ml Phencyclidine (PCP) NEG 0 - 25 ng/ml Nortriptyline (TCA) NEG 0 - 1000 ng/ml Oxycodone NEG 0 - 300 ng/ml x NEG 0 - 300 ng/ml UDT Reviewed date:09/16/2024 10:44:52 AM Interpretation: Performing Lab: Notes/Report: THC n 0 - 50 ng/ml Cocaine n 0 - 300 ng/ml Amphetamine n 0 - 1000 ng/ml Buprenorphine (BUP) n 0 - 10 ng/ml Secobarbital (Bar) n 0 - 300 ng/ml Oxazepam (BZO) n 0 - 300 ng/ml 5-hqowrnukyo-1,8-wzvzypdz-2,3-diphenylpyrrolidine (KEL P) n 0 - 300 ng/ml Methamphetamine (MET) n 0 - 1000 ng/ml Methylenedioxymethamphetamine (MDMA) n 0 - 500 ng/ml Morphine (MOP 300/[id number]) n 0 - 300 ng/ml Methadone (MTD) n 0 - 300 ng/ml Phencyclidine (PCP) n 0 - 25 ng/ml Nortriptyline (TCA) n 0 - 1000 ng/ml Oxycodone n 0 - 300 ng/ml x n 0 - 300 ng/ml Reason For Referral No Information Medications Medication SIG (Take, Route, Frequency, Duration) Notes Start Date End Date Status Ochelata Carbonate 150 MG 1 capsule Oral once a day; Duration: 90 days Active DULoxetine HCl 30 MG 3 capsule Orally On ce a day; Duration: 90 days Active Mounjaro 7.5 MG/0.5ML INJECT 7.5MG UNDER THE SKIN ONCE WEEKLY Subcutaneous; Duration: 28 Days Active Gabapentin 800 MG TAKE 1 TABLET BY APRIL TH THREE TIMES DAILY Oral; Duration: 30 Days Active Omeprazole 20 MG TAKE 1 CAPSULE BY MO UTH DAILY Oral; Duration: 90 Days Active rOPINIRole HCl 3 MG Oral; Duration: 90 Days Active Topiramate 50 MG TAKE 1 TABLET BY APRIL TH DAILY Oral; Duration: 30 Days Active Social History Tobacco Use: Social History Observation Description Date Details (start date - stop date) Never Smoker NA - NA Sex Assigned At : Social History Observation Description Sex Assigned At Female Household Question Answer Notes Marital status: Number of children in household: 0 no children Tobacco Control (Standard) Question Answer Notes Tobacco use: Nonsmoker Problems Problem Type SNOMED Code ICD Code Onset Dates Problem Status W/U Status Risk Notes Problem Primary insomnia (3155626) Primary insomnia (F51.01) Active confirmed Problem Generalized anxiety disorder (88597085) JAY (generalized anxiety disorder) (F41.1) Active confirmed Problem Chronic insomnia (463088147) Chronic insomnia (F51.04) Active confirmed Problem Unable to concentrate (finding) (64887440) Difficulty concentrating (R41.840) Active confirmed Problem Bipolar 1 disorder (821707074) Bipolar 1 disorder (F31.9) Active confirmed Problem Prediabetes (343872585) Prediabetes (R73.03) 3 Active confirmed Problem Restless legs (08561458) Restless legs syndrome (RLS) (G25.81) 0 Active confirmed Vital Signs Heart Rate 60 /min 10/05/2024 Height-cm 160.02 cm 01/26/2025 Blood pressure diastolic 58 mm Hg 10/05/2024 Weight-kg 67.13 kg 10/05/2024 Height 63 in 01/26/2025 Blood pressure systolic 90 mm Hg 10/05/2024 Weight 148 lbs 10/05/2024 BMI 26.21 kg/m2 10/05/2024 Procedures Procedure Date Ordered Date Performed Result Body Sit e ADHD Testing 09/16/2024 N/A Encounters Encounter Location Date Provider Diagnosis [facility] [address] [address] 09/16/2024 Zoilakitty Galarza Bipolar 1 disorder F31.9 ; Chronic insomnia F51.04 ; JAY (generalized anxiety disorder) F41.1 and Difficulty concentrating R41.840 [facility] [address] 09/28/2024 Colin Styles Lack of concentratio n R41.840 [facility] [address] [address] 10/05/2024 Zoila Kurilla Bipolar 1 disorder F31.9 ; Chronic insomnia F51.04 and JAY (generalized anxiety disorder) F41.1 [facility] [place] [address] [facility] [address] [address] 11/16/2024 Zoila Kurilla Bipolar 1 disorder F31.9 ; Chronic insomnia F51.04 ; JAY (generalized anxiety disorder) F41.1 and Encounter for screening for depression Z13.31 [facility] [place] [id number] [facility] [address] [address] 01/04/2025 Zoila Kurilla Bipolar 1 disorder F31.9 ; Chronic insomnia F51.04 ; JAY (generalized anxiety disorder) F41.1 and Encounter for screening for depression Z13.31 [place] [address] [address] 01/26/2025 Zoilakitty Galarza Bipolar 1 disorder F31.9 ; Chronic insomnia F51.04 ; JAY (generalized anxiety disorder) F41.1 ; Encounter for screening for depression Z13.31 and Negative depression screening Z13.31 [place] [address] [facility] [address] [place] [address] 10/05/2024 Zoilakitty Galarza [place] [address] [facility] [address] [place] [address] 01/26/2025 Zoilakitty Galarza [place] [address] [address] 09/21/2024 Zoilakitty Galarza [place] [address] [address] 09/22/2024 Zoilakitty Galarza [place] [address] [address] 12/06/2024 Zoila Geovanni JAY (generalized anxiety disorder) F41.1 [place] [address] [address] 12/11/2024 Zoila Kurjorden [place] [address] [address] 12/11/2024 Zoila Kurilla JAY (generalized anxiety disorder) F41.1 [place] [address] [address] 12/12/2024 Zoilakitty Galarza [place] [address] [address] 01/29/2025 Zoilakitty Galarza Assessments Encounter Date Diagnosis (ICD Code) Assessment Notes Treatment Notes Treatment Clinical Notes Section Notes 09/16/2024 Bipolar 1 disorder (ICD-10 - F31.9) Electronic Prior Authorization was requested for Lurasidone HCl 40 MG Tablet. Provider can order medication once approval received. Second generation antipsychotics (SGAs) have metabolic syndrome issues with weight gain, increase in prolactin, increased waist circumference, increased lipids, and increased glucose. Thus routine monitoring of weight, metabolic labs, etc. is indicated. A general rank ordering of antipsychotics that have the greatest to the least risk of metabolic effects is olanzapine, quetiapine, risperidone, ziprasidone, and aripiprazole. However, weight gain can occur with all of these drugs and considerable variability exists among patients receiving the same drug regarding the risk of metabolic effects. Anti-psychotic agents not only increase the risk of metabolic disorder, they also increase the risk of CVA, akathisia, and movement disorders including EPS or tardive dyskinesia (more common with first generation antipsychotics) and more. 09/28/2024 Lack of concentration (ICD-10 - R41.840) Analysis of Cognitive Assessment Report Zaidi Findings: The ASRS questionnaire is indicative of ADHD, with a Part A score of 4, which exceeds the threshold of 3. Three cognitive markers fall outside the typical range, suggesting some executive function difficulties. Response inhibition and sustained attention show the most significant impairments, with high error rates and reaction time variability. Planning and spatial working memory are within the typical range but on the lower side. Detailed Breakdown of Cognitive Functions 1. Planning (Spatial Planning) Score: 11 (27th percentile) Interpretation: Planning ability is weaker than average, but still within a functional range. Real-life impact: Difficulty organizing tasks, following multi-step processes, and planning ahead effectively. 2. Spatial Working Memory (Token Search) Score: 5.6 (52nd percentile) Interpretation: Working memory is within the typical range but not particularly strong. Real-life impact: Possible forgetfulness, difficulty keeping track of information in real time. 3. Attention (Feature Match) Errors: 2 (69th percentile) Reaction Time: 3193ms (54th percentile) Interpretation: Attention is within the normal range, but reaction times are slightly slower than average. Real-life impact: May struggle with maintaining focus for extended periods but does not show extreme inattentiveness. 4. Response Inhibition (Double Trouble) Errors: 13 (82nd percentile) Interference Ratio for Errors: 6 (85th percentile) Reaction Time Variability: 1042ms (80th percentile) Interpretation: Significant impairment in response inhibition. High error rates suggest difficulty filtering distractions and maintaining control over impulsive responses. Real-life impact: Difficulty resisting impulsive actions, maintaining patience, and filtering out distractions. 5. Sustained Attention (SART Test) Commission Errors: 24 (100th percentile, highly impaired) Omission Errors: 14 (81st percentile) Reaction Time Variability: 267ms (96th percentile) Interpretation: Severe issues with sustaining attention and maintaining a consistent response pattern. Real-life impact: May frequently lose track of tasks, get distracted easily, and struggle with completing activities requiring prolonged focus. Overall Interpretation The ASRS questionnaire indicates ADHD, which is supported by cognitive test results. Response inhibition and sustained attention are the most impaired areas, aligning with ADHD symptoms. Planning and working memory are weaker but within the normal range, suggesting some executive function difficulties. Slower reaction times and high variability suggest difficulties with consistency and maintaining focus. Next Steps and Recommendations 1. Managing Attention and Impulsivity Use structured routines and external reminders to help maintain focus. Break tasks into small, manageable steps to reduce overwhelm. Try body doubling (working alongside someone) to improve accountability. 2. Improving Response Inhibition Practice mindfulness exercises to develop better impulse control. Implement delayed response techniques (pause before speaking or acting). Use reward-based motivation systems to reinforce self-control. 3. Enhancing Sustained Attention Use the Pomodoro technique (work in focused bursts with short breaks). Minimize distractions by using noise-canceling headphones or structured work environments. Engage in cognitive training exercises that challenge focus, such as meditation or brain games. 4. Exercise and Lifestyle Adjustments Aerobic exercise (jogging, cycling) can improve dopamine regulation. Strength training may enhance executive function. Dietary adjustments, such as increasing omega-three fatty acids and protein intake, can support brain function. Conclusion The test results indicate ADHD is likely, and difficulties in response inhibition and sustained attention strongly align with this. Implementing structured routines, mindfulness techniques, and physical exercise can help manage symptoms effectively. 09/16/2024 Chronic insomnia (ICD-10 - F51.04) 10/05/2024 Chronic insomnia (ICD-10 - F51.04) 10/05/2024 Bipolar 1 disorder (ICD-10 - F31.9) Second generation antipsychotics (SGAs) have metabolic syndrome issues with weight gain, increase in prolactin, increased waist circumference, increased lipids, and increased glucose. Thus routine monitoring of weight, metabolic labs, etc. is indicated. A general rank ordering of antipsychotics that have the greatest to the least risk of metabolic effects is olanzapine, quetiapine, risperidone, ziprasidone, and aripiprazole. However, weight gain can occur with all of these drugs and considerable variability exists among patients receiving the same drug regarding the risk of metabolic effects. Anti-psychotic agents not only increase the risk of metabolic disorder, they also increase the risk of CVA, akathisia, and movement disorders including EPS or tardive dyskinesia (more common with first generation antipsychotics) and more. 11/16/2024 Bipolar 1 disorder (ICD-10 - F31.9) Second generation antipsychotics (SGAs) have metabolic syndrome issues with weight gain, increase in prolactin, increased waist circumference, increased lipids, and increased glucose. Thus routine monitoring of weight, metabolic labs, etc. is indicated. A general rank ordering of antipsychotics that have the greatest to the least risk of metabolic effects is olanzapine, quetiapine, risperidone, ziprasidone, and aripiprazole. However, weight gain can occur with all of these drugs and considerable variability exists among patients receiving the same drug regarding the risk of metabolic effects. Anti-psychotic agents not only increase the risk of metabolic disorder, they also increase the risk of CVA, akathisia, and movement disorders including EPS or tardive dyskinesia (more common with first generation antipsychotics) and more. 12/06/2024 JAY (generalized anxiety disorder) (ICD-10 - F41.1) 12/11/2024 JAY (generalized anxiety disorder) (ICD-10 - F41.1) 01/04/2025 Bipolar 1 disorder (ICD-10 - F31.9) If you are planning on becoming , notify your health care provider so that he/she can best manage your medications. People living with bipolar disorder who wish to become face important decisions. It is important to discuss the risks and benefits of treatment with your doctor and caregivers. Ochelata has been associated with an increased risk of Ebstein's anomaly, a heart valve defect. Even though data suggest that the risk of Ebstein's anomaly from first trimester use of lithium is very low, an ultrasound of the heart is recommended at 16 to 20 weeks of gestation. Ochelata levels should be monitored monthly in early and weekly near delivery. Do not stop taking lithium without first speaking to your health care provider. Discontinuing mood stabilizer medications during has been associated with a significant increase in symptom relapse. If an overdose occurs call your doctor or 911. You may need urgent medical care. You may also contact the poison control center at . A specific treatment to reverse the effects of lithium does not exist, but there are treatments to decrease the effects of the medication. Only a doctor can determine if you require treatment. Avoid drinking alcohol or using illegal drugs while you are taking lithium. They may decrease the benefits (e.g., worsen your condition) and increase adverse effects (e.g., sedation) of the medication. Avoid low sodium diets and dehydration because this can increase the risk of lithium toxicity. Avoid over the counter and prescription pain medications that contain nonsteroidal anti-inflammatory medications (NSAIDS) such as ibuprofen (Motrin, Advil) or naproxen (Aleve, Naprosyn) because these medications can increase the risk of toxicity from lithium. Avoid excessive intake of caffeinated beverages, such as coffee, tea, cola or energy drinks, since these may decrease levels of lithium and decrease effectiveness of the medication. Discontinuing caffeine use may increase lithium levels. Consult your health care provider before reducing or stopping caffeine use. What are the possible side effects of lithium? Common side effects Headache Nausea or vomiting Diarrhea Dizziness or drowsiness Changes in appetite Hand tremors Dry mouth Increased thirst Increased urination Thinning of hair or hair loss Acne-like rash Rare/Serious side effects Signs of lithium toxicity include severe nausea and vomiting, severe hand tremors, confusion, vision changes, and unsteadiness while standing or walking. These symptoms need to be addressed immediately with a medical doctor to ensure your lithium level is not dangerously high. In rare cases, lithium may lead to a reversible condition known as diabetes insipidus. If this occurs you would notice a significant increase in thirst and how much fluid you drink and how much you urinate. Talk to your doctor if you notice you are urinating more frequently than usual. Are There Any Risks For Taking Ochelata For Long Periods Of Time? Hypothyroidism (low levels of thyroid hormone) may occur with long-term lithium use. Rare kidney problems have been associated with long-term use of lithium. The risk increases with high levels of lithium. Your doctor will monitor your kidney function at routine check-ups to ensure this does not occur. Summary of Black Box Warnings Ochelata Toxicity Ochelata toxicity is closely related to lithium blood levels and can occur at doses close to therapeutic levels; lithium levels should be monitored closely when starting the medication or if individuals experience side effects of the medication. 01/26/2025 Chronic insomnia (ICD-10 - F51.04) 01/26/2025 Bipolar 1 disorder (ICD-10 - F31.9) If you are planning on becoming , notify your health care provider so that he/she can best manage your medications. People living with bipolar disorder who wish to become face important decisions. It is important to discuss the risks and benefits of treatment with your doctor and caregivers. Ochelata has been associated with an increased risk of Ebstein's anomaly, a heart valve defect. Even though data suggest that the risk of Ebstein's anomaly from first trimester use of lithium is very low, an ultrasound of the heart is recommended at 16 to 20 weeks of gestation. Ochelata levels should be monitored monthly in early and weekly near delivery. Do not stop taking lithium without first speaking to your health care provider. Discontinuing mood stabilizer medications during has been associated with a significant increase in symptom relapse. If an overdose occurs call your doctor or 911. You may need urgent medical care. You may also contact the poison control center at . A specific treatment to reverse the effects of lithium does not exist, but there are treatments to decrease the effects of the medication. Only a doctor can determine if you require treatment. Avoid drinking alcohol or using illegal drugs while you are taking lithium. They may decrease the benefits (e.g., worsen your condition) and increase adverse effects (e.g., sedation) of the medication. Avoid low sodium diets and dehydration because this can increase the risk of lithium toxicity. Avoid over the counter and prescription pain medications that contain nonsteroidal anti-inflammatory medications (NSAIDS) such as ibuprofen (Motrin, Advil) or naproxen (Aleve, Naprosyn) because these medications can increase the risk of toxicity from lithium. Avoid excessive intake of caffeinated beverages, such as coffee, tea, cola or energy drinks, since these may decrease levels of lithium and decrease effectiveness of the medication. Discontinuing caffeine use may increase lithium levels. Consult your health care provider before reducing or stopping caffeine use. What are the possible side effects of lithium? Common side effects Headache Nausea or vomiting Diarrhea Dizziness or drowsiness Changes in appetite Hand tremors Dry mouth Increased thirst Increased urination Thinning of hair or hair loss Acne-like rash Rare/Serious side effects Signs of lithium toxicity include severe nausea and vomiting, severe hand tremors, confusion, vision changes, and unsteadiness while standing or walking. These symptoms need to be addressed immediately with a medical doctor to ensure your lithium level is not dangerously high. In rare cases, lithium may lead to a reversible condition known as diabetes insipidus. If this occurs you would notice a significant increase in thirst and how much fluid you drink and how much you urinate. Talk to your doctor if you notice you are urinating more frequently than usual. Are There Any Risks For Taking Ochelata For Long Periods Of Time? Hypothyroidism (low levels of thyroid hormone) may occur with long-term lithium use. Rare kidney problems have been associated with long-term use of lithium. The risk increases with high levels of lithium. Your doctor will monitor your kidney function at routine check-ups to ensure this does not occur. Summary of Black Box Warnings Ochelata Toxicity Ochelata toxicity is closely related to lithium blood levels and can occur at doses close to therapeutic levels; lithium levels should be monitored closely when starting the medication or if individuals experience side effects of the medication. 01/04/2025 Chronic insomnia (ICD-10 - F51.04) 01/26/2025 JAY (generalized anxiety disorder) (ICD-10 - F41.1) SSRI/SNRI side effects discussed including but not limited to, gastric upset, nausea, vomiting, diarrhea and/or constipation, weight changes, sexual side effects including loss of libido, increased suicidal thoughts/behaviors in children and young adults, and serotonin syndrome. 11/16/2024 Chronic insomnia (ICD-10 - F51.04) 09/16/2024 JAY (generalized anxiety disorder) (ICD-10 - F41.1) SSRI/SNRI side effects discussed including but not limited to, gastric upset, nausea, vomiting, diarrhea and/or constipation, weight changes, sexual side effects including loss of libido, increased suicidal thoughts/behaviors in children and young adults, and serotonin syndrome. 10/05/2024 JAY (generalized anxiety disorder) (ICD-10 - F41.1) SSRI/SNRI side effects discussed including but not limited to, gastric upset, nausea, vomiting, diarrhea and/or constipation, weight changes, sexual side effects including loss of libido, increased suicidal thoughts/behaviors in children and young adults, and serotonin syndrome. 09/16/2024 Difficulty concentrating (ICD-10 - R41.840) Pre-treatment evaluation and contraindications Before initiating treatment with a stimulant in adults, we review their cardiovascular history, including chest pain, palpitations, syncope, myocardial infarction, arrhythmia, valvular disease, and family history. We measure blood pressure and pulse in all patients and obtain an electrocardiogram (ECG) in individuals with cardiac history or cardiac symptoms such as palpitations or chest pain. In individuals with a cardiac history, or when findings outside normal limits are seen, we consult a surgical dressing maker to determine whether the results are sufficiently severe to avoid these medications. We also rule out MELISSA; if you are using cannabis, are heavy alcohol, or are using other street drugs and have a history of MELISSA, than we consider non-stimulant treatment. We also do routine and random UDT If you refuse or fail to give urine for urine, then we will not prescribe controlled substances. If your urine comes positive for medicine (which are not prescribed to you) and illicit drugs (including Cannabis) then we will not prescribe a controlled substance There is a charge for Stimulant refills 11/16/2024 JAY (generalized anxiety disorder) (ICD-10 - F41.1) SSRI/SNRI side effects discussed including but not limited to, gastric upset, nausea, vomiting, diarrhea and/or constipation, weight changes, sexual side effects including loss of libido, increased suicidal thoughts/behaviors in children and young adults, and serotonin syndrome. 01/04/2025 JAY (generalized anxiety disorder) (ICD-10 - F41.1) SSRI/SNRI side effects discussed including but not limited to, gastric upset, nausea, vomiting, diarrhea and/or constipation, weight changes, sexual side effects including loss of libido, increased suicidal thoughts/behaviors in children and young adults, and serotonin syndrome. 01/26/2025 Encounter for screening for depression (ICD-10 - Z13.31) 01/04/2025 Encounter for screening for depression (ICD-10 - Z13.31) 11/16/2024 Encounter for screening for depression (ICD-10 - Z13.31) 01/26/2025 Negative depression screening (ICD-10 - Z13.31) 09/16/2024 Other Taper off of Vraylar, could be contributing to anxiety and could not historically tolerate 4.5mg due to activation. Decrease to 1.5mg daily for four days then stop (sample pack provided). Start Latuda 20mg daily for four days then 40mg daily for mood. -discussed must take with at least 350 calories Discontinue trazodone due to daytime drowsiness. Start doxepin 25mg daily for insomnia Patient educated on all medications including potential benefits, side effects, risks. Educated on proper dosing schedule and importance of compliance. Schedule for ADHD test to rule in or rule out dx -Assessment and treatment plan reviewed with patient. -Compliance with treatment plan importance discussed. -Discussed the risks/benefits of this medication -Discussed medication side effects. -Contact office if symptoms worsen. -Discussed that it can take up to 6-8 weeks to see full therapeutic effects of psychotropic medications. -Crisis prevention [facility] 98. 10/05/2024 Other Increase latuda to 60mg daily for mood Patient educated on all medications including potential benefits, side effects, risks. Educated on proper dosing schedule and importance of compliance. ADHD evaluation reviewed, not supportive of dx -Assessment and treatment plan reviewed with patient. -Compliance with treatment plan importance discussed. -Discussed the risks/benefits of this medication -Discussed medication side effects. -Contact office if symptoms worsen. -Discussed that it can take up to 6-8 weeks to see full therapeutic effects of psychotropic medications. -Crisis prevention [place] [id number]. 11/16/2024 Other Start Wellbutrin 150mg daily for decreased libido, mood Patient educated on all medications including potential benefits, side effects, risks. Educated on proper dosing schedule and importance of compliance. -Assessment and treatment plan reviewed with patient. -Compliance with treatment plan importance discussed. -Discussed the risks/benefits of this medication -Discussed medication side effects. -Contact office if symptoms worsen. -Discussed that it can take up to 6-8 weeks to see full therapeutic effects of psychotropic medications. -Crisis prevention [facility] 98. 01/04/2025 Other Taper off of Latuda- take half a tablet daily for 4 days then discontinue. Start lithium 150mg BID for mood stabilization - discussed need for regular bloodwork, will order at next apt. Patient educated on all medications including potential benefits, side effects, risks. Educated on proper dosing schedule and importance of compliance. Cont individual counseling -Assessment and treatment plan reviewed with patient. -Compliance with treatment plan importance discussed. -Discussed the risks/benefits of this medication -Discussed medication side effects. -Contact office if symptoms worsen. -Discussed that it can take up to 6-8 weeks to see full therapeutic effects of psychotropic medications. -Crisis prevention [facility] 98. 01/26/2025 Other Decrease lithium to 150mg daily, monitor for increase in depression, irritability -monitor for improvement in brain fog Patient educated on all medications including potential benefits, side effects, risks. Educated on proper dosing schedule and importance of compliance. Referred to DBT group -Assessment and treatment plan reviewed with patient. -Compliance with treatment plan importance discussed. -Discussed the risks/benefits of this medication -Discussed medication side effects. -Contact office if symptoms worsen. -Discussed that it can take up to 6-8 weeks to see full therapeutic effects of psychotropic medications. -Crisis prevention hotline 928. Plan Of Treatment Pending Test Test Name Order Date ADHD Testing 09/16/2024 Next Appt Details Provider Name:Zoila Makayla canela, 03/02/2025 01:30:00 PM, [address], [address], [place], [address], Insurance Providers Payer Name Payer Address Payer Phone Subscriber Number Group Number Insured Name Patient Relationship to Insured Coverage Start Date Coverage End Date [place] [address] [place] [address] [id number] Sandie Storey Self - patient is the insured Medicare-I l Medicare [address] [place] [address] [id number] Sandie Storey Self - patient is the insured Medical (General) History Medical History History ICD Code bipolar disorder anxiety macular degeneration (legally blind) fibromyalgia neuropathy Surgical History Surgery Date(Month/Year) cholecystectomy Hospitalization History Reason Date(Month/Year) [facility] for suicide attempt 2005
--- OUTSIDE RECORDS SUMMARY | 2025-01-31 12:13 | XMS_ITS | Encounter Summary ---
Author Organization [facility] Address [address] [place] [address] Care Team Providers Care Process Lead Name Role Phone Flaquita, Juvenal Topete MD Primary Care Prov ider Encounter Details Date Type Department Care Team (Latest Contact Info) Description 05/01/2005 Outpatient Historical HIS [facility] (Excluded Provider) Salima Grande MD [address] [place] [address] RECURR DEPR PSYCHOS-MOD (CMS/HCC) (Primary Dx) Social History Tobacco Use Types Packs/Day Years Used Date Smoking Tobacco: Never Assessed Comments Unknown Sex and Gender Information Value Date Recorded Sex Assigned at Not on file Legal Sex Female 4:45 AM ASSISTANT PASSENGER LOCOMOTIVE ENGINEER Gender Identity Not on file Sexual Orientation Not on file documented as of this encounter Plan of Treatment Not on file documented as of this encounter Procedures Procedure Name Priority Date/Time Associated Diagnosis Comments VALPROIC ACID LEVEL, TOTAL Routine 05/01/2005 2:57 PM CDT documented in this encounter Results * (ABNORMAL) VALPROIC ACID LEVEL, TOTAL (05/01/2005 2:57 PM CDT) VALPROIC ACID TOTAL 102(H) 50 - 100 ug/mL INTERFACE SYSTEM Comment: Valproic Acid Antiepileptic Control = 50 - 100 ug/mL Valproic Acid Manic Episode Control = 50 - 125 ug/mL Valproic Acid Toxic Level = >200 ug/mL Results faxed. 05/01/2005 2:57 PM CDT Mohd Azfar (Excluded Provider) Harjinder GILBERT CHEMISTR Y ORDERABLES Final Result INTERFACE SYSTEM Refer to clinic/hospital department documented in this encounter Visit Diagnoses Diagnosis Major depressive disorder, recurrent episode, moderate (CMS/HCC)- Primary Major depressive disorder, recurrent episode, moderate documented in this encounter Care Teams Process Lead Relationship Specialty Start Date End Date Juvenal Sams MD PCP - General Family Practice 03/13/20 05/10/20 documented as of this encounter
--- OUTSIDE RECORDS SUMMARY | 2025-01-31 12:13 | XMS_ITS | Encounter Summary ---
Author Organization [employer] Address [address] [place] [address] Care Team Providers Care Company Laundry Worker Name Role Phone Juvenal Sams MD Primary Care Prov ider Encounter Details Date Type Department Care Team (Late st Contact Info) Description 04/06/2005 Outpatient Historical [facility] Emelia Cruz Er, Authorized P NO ADDRESS ON FILE DIZZINESS AND GIDDINESS (Primary Dx) Social History Tobacco Use Types Packs/Day Years Used Date Smoking Tobacco: Never Assessed Comments Unknown Sex and Gender Information Value Date Recorded Sex Assigned at Not on file Legal Sex Female 4:45 AM SENIOR ADVISORY Gender Identity Not on file Sexual Orientation Not on file documented as of this encounter Plan of Treatment Not on file documented as of this encounter Visit Diagnoses Diagnosis Dizziness and giddiness- Primary documented in this encounter Care Teams Company Laundry Worker Relationship Specialty Start Date End Date Juvenal Sams MD PCP - General Family Practice 03/13/20 05/10/20 documented as of this encounter
--- OUTSIDE RECORDS SUMMARY | 2025-01-31 12:13 | XMS_ITS | Encounter Summary ---
Author Organization [facility] Address [address] [place] [address] Care Team Providers Care Plastics Engineer Name Role Phone Juvenal Sams MD Primary Care Prov ider Encounter Details Date Type Department Care Team (Late st Contact Info) Description 12/14/2004 Outpatient Historical HIS [facility] Derek Smalls MD [address] [place], [place] [id number] DIZZINESS AND GIDDINESS (Primary Dx) Social History Tobacco Use Types Packs/Day Years Used Date Smoking Tobacco: Never Assessed Comments Unknown Sex and Gender Information Value Date Recorded Sex Assigned at Not on file Legal Sex Female 4:45 AM CLEAR COAT SPRAYER Gender Identity Not on file Sexual Orientation Not on file documented as of this encounter Plan of Treatment Not on file documented as of this encounter Procedures Procedure Name Priority Date/Time Associated Diagnosis Comments CBC WITH DIFFERENTIAL Routine 12/14/2004 1:25 PM CDT CBC WITH DIFFERENTIAL Routine 12/14/2004 1:25 PM CDT TSH Routine 12/14/2004 1:25 PM CDT COMPREHENSIVE METABOLIC PANEL Routine 12/14/2004 1:25 PM CDT documented in this encounter Results * CBC WITH DIFFERENTIAL (12/14/2004 1:25 PM CDT) NEUTROPHILS 59 45 - 70 % INTERFAC E SYSTEM LYMPHOCYTES 30 16 - 45 % INTERFAC E SYSTEM MONOCYTES 8 3 - 13 % INTERFACE SYSTEM EOSINOPHILS 2 0 - 7 % INTERFAC E SYSTEM BASOPHILS 1 0 - 2 % INTERFACE SYSTEM NEUTROPHIL ABSOLUTE 3.18 1.90 - 7.00 K/uL INTERFACE SYSTEM LYMPHOCYTE ABSOLUTE 1.63 0.70 - 4.50 K/uL INTERFACE SYSTEM MONOCYTE ABSOLUTE 0.43 0.10 - 1.30 K/uL INTERFACE SYSTEM EOSINOPHIL ABSOLUTE 0.09 0.00 - 0.70 K/uL INTERFACE SYSTEM BASOPHILS ABSOLUTE 0.05 0.00 - 0.20 K/uL INTERFACE SYSTEM 12/14/2004 1:25 PM CDT Derek Gao MD HEMATOLOGY ORDERABLES Final Res ult Performing Organization Address City/[facility] [[email or web address]] de Phone Number INTERFACE SYSTEM Refer to clinic/hospital department * CBC WITH DIFFERENTIAL (12/14/2004 1:25 PM CDT) WBC 5.4 4.0 - 9.8 K/uL INTERFACE SYSTEM RBC 4.53 3.90 - 4.90 M/uL INTERFACE SYSTEM HEMOGLOBIN 13.6 11.8 - 14.8 g/dL INTERFACE SYSTEM HEMATOCRIT 40.0 35.5 - 44.0 % INTERFACE SYSTEM MCV 88.3 82.0 - 99.0 fL INTERFACE SYSTEM MCH 30.0 27.2 - 32.6 pg INTERFACE SYSTEM MCHC 34.0 31.5 - 35.5 % INTERFACE SYSTEM RDW 12.6 11.5 - 14.5 % INTERFACE SYSTEM RDW-STDEV 40.1 37.1 - 48.7 fL INTERFACE SYSTEM PLATELETS 195 140 - 350 K/uL INTERFACE SYSTEM MPV 11.0 9.3 - 12.4 fL INTERFACE SYSTEM 12/14/2004 1:25 PM CDT Derek Gao MD HEMATOLOGY ORDERABLES Final Res ult Performing Organization Address City/[facility]/ZIP Co de Phone Number INTERFACE SYSTEM Refer to clinic/hospital department * TSH (12/14/2004 1:25 PM CDT) TSH 1.12 0.27 - 4.20 uU/mL INTERFACE SYSTEM 12/14/2004 1:25 PM CDT Derek Gao MD CHEMISTRY ORDERABLES Final Resu lt Performing Organization Address City/[facility] Co de Phone Number INTERFACE SYSTEM Refer to clinic/hospital department * COMPREHENSIVE METABOLIC PANEL (12/14/2004 1:25 PM CDT) GLUCOSE 100 65 - 109 mg/dL INTERFACE SYSTEM CREATININE 0.7 0.4 - 1.2 mg/dL INTERFACE SYSTEM CALCIUM 9.3 8.6 - 10.2 mg/dL INTERFACE SYSTEM AST 23 12 - 32 U/L INTERFACE SYSTEM ALKALINE PHOSPHATASE 44 35 - 104 U/L INTERFACE SYSTEM BUN 9 6 - 20 mg/dL INTERFACE SYSTEM BILIRUBIN TOTAL 0.4 0.2 - 1.0 mg/dL INTERFACE SYSTEM ALBUMIN 4.6 3.4 - 4.8 g/dL INTERFACE SYSTEM TOTAL PROTEIN 7.4 6.3 - 8.6 g/dL INTERFACE SYSTEM ALT 14 0 - 31 U/L INTERFACE SYSTEM SODIUM 140 135 - 145 mmol/L INTERFACE SYSTEM POTASSIUM 3.8 3.5 - 4.9 mmol/L INTERFACE SYSTEM CHLORIDE 103 96 - 108 mmol/L INTERFACE SYSTEM CO2 28 22 - 30 mmol/L INTERFACE SYSTEM 12/14/2004 1:25 PM CDT Derek Gao MD CHEMISTRY ORDERABLES Final Resu Performing Organization Address City/[facility] Co de Phone Number INTERFACE SYSTEM Refer to clinic/hospital department documented in this encounter Visit Diagnoses Diagnosis Dizziness and giddiness- Primary documented in this encounter Care Teams Plastics Engineer Relationship Specialty Start Date End Date Juvenal Sams MD PCP - General Family Practice 03/13/20 05/10/20 documented as of this encounter
--- OUTSIDE RECORDS SUMMARY | 2025-01-31 12:13 | XMS_ITS | Encounter Summary ---
Author Organization [employer] [facility] Address [address] [place] [address] Care Team Providers Care Research Lab Assistant Name Role Phone Juvenal Sams MD Primary Care Prov ider Encounter Details Date Type Department Care Team (Latest Contact Info) Description 04/12/2006 Inpatient Historical HIS PATIENT IN A BED (Excluded Provider) Salima Grande MD [address] [place] [address] Major Depressive Disorder, Recurrent Episode, Unspecified (Primary Dx) Social History Tobacco Use Types Packs/Day Years Used Date Smoking Tobacco: Never Assessed Comments Unknown Sex and Gender Information Value Date Recorded Sex Assigned at Not on file Legal Sex Female 4:45 AM LABOR ECONOMIST Gender Identity Not on file Sexual Orientation Not on file documented as of this encounter Plan of Treatment Not on file documented as of this encounter Visit Diagnoses Diagnosis Major depressive disorder, recurrent episode, unspecified- Primary documented in this encounter Care Teams Research Lab Assistant Relationship Specialty Start Date End Date Juvenal Sams MD PCP - General Family Practice 03/13/20 05/10/20 documented as of this encounter
--- OUTSIDE RECORDS SUMMARY | 2025-01-31 12:13 | XMS_ITS | Encounter Summary ---
Author Organization [facility] Address [address] [place] [address] Care Team Providers Care Solar Energy System Installer Name Role Phone Flaquita, Juvenal Topete MD Primary Care Prov ider Encounter Details Date Type Department Care Team (Late st Contact Info) Description 04/10/2007 Outpatient Historical [facility] Internal Medicine Medical [place] [facility] [address] [address] Joey Adrian MD [address] [address] Social History Tobacco Use Types Packs/Day Years Used Date Smoking Tobacco: Never Assessed Comments Unknown Sex and Gender Information Value Date Recorded Sex Assigned at Not on file Legal Sex Female 4:45 AM NURSING INFORMATICS CLINICAL ANALYST Gender Identity Not on file Sexual Orientation Not on file documented as of this encounter Last Filed Vital Signs Vital Sign Reading Time Taken Comments Blood Pressure 122/78 04/10/2007 2:30 PM CDT Pulse 88 04/10/2007 2:30 PM CDT Temperature 36.7 C (98.1 F) 04/10/2007 2:30 PM CDT Respiratory Rate - - Oxygen Saturation - - Inhaled Oxygen Concentration - - Weight 93 kg (205 lb) 04/10/2007 2:30 PM CDT Height - - Body Mass Index 35.19 01/21/2005 12:45 PM CDT documented in this encounter Plan of Treatment Not on file documented as of this encounter Visit Diagnoses Not on filedocumented in this encounter Care Teams Solar Energy System Installer Relationship Specialty Start Date End Date Juvenal Sams MD PCP - General Family Practice 03/13/20 05/10/20 documented as of this encounter
--- OUTSIDE RECORDS SUMMARY | 2025-01-31 12:13 | XMS_ITS | Encounter Summary ---
Author Organization [facility] Address [address] [place] [address] Care Team Providers Care Human Resources Benefits Assistant Name Role Phone Juvenal Sams MD Primary Care Prov ider Encounter Details Date Type Department Care Team (Late st Contact Info) Description 11/22/2004 Outpatient Historical [facility] Internal Medicine Medical [place] A [address] [address] Derek Gao MD [address] [place] [address] Social History Tobacco Use Types Packs/Day Years Used Date Smoking Tobacco: Never Assessed Comments Unknown Sex and Gender Information Value Date Recorded Sex Assigned at Not on file Legal Sex Female 4:45 AM CIGAR SORTER Gender Identity Not on file Sexual Orientation Not on file documented as of this encounter Last Filed Vital Signs Vital Sign Reading Time Taken Comments Blood Pressure - - Pulse - - Temperature 37.1 C (98.7 F) 11/22/2004 11:20 AM CDT Respiratory Rate - - Oxygen Saturation - - Inhaled Oxygen Concentration - - Weight - - Height - - Body Mass Index - - documented in this encounter Plan of Treatment Not on file documented as of this encounter Visit Diagnoses Not on filedocumented in this encounter Care Teams Human Resources Benefits Assistant Relationship Specialty Start Date End Date SamsJuvenal gage MD PCP - General Family Practice 03/13/20 05/10/20 documented as of this encounter
--- OUTSIDE RECORDS SUMMARY | 2025-01-31 12:13 | XMS_ITS | Encounter Summary ---
Author Organization [facility] Address [address] [place] [address] Care Team Providers Care Quality Control Inspector Heading Name Role Phone Juvenal Sams MD Primary Care Prov ider Encounter Details Date Type Department Care Team (Late st Contact Info) Description 11/10/2001 Outpatient Historical Division of Neurology [address] [address] Francisco Layne MD [address] [place] [id number] Social History Tobacco Use Types Packs/Day Years Used Date Smoking Tobacco: Never Assessed Comments Unknown Sex and Gender Information Value Date Recorded Sex Assigned at Not on file Legal Sex Female 4:45 AM PERISHABLE FREIGHT INSPECTOR Gender Identity Not on file Sexual Orientation Not on file documented as of this encounter Plan of Treatment Not on file documented as of this encounter Visit Diagnoses Not on filedocumented in this encounter Care Teams Quality Control Inspector Heading Relationship Specialty Start Date End Date Juvenal Sams MD PCP - General Family Practice 03/13/20 05/10/20 documented as of this encounter
--- OUTSIDE RECORDS SUMMARY | 2025-01-31 12:13 | XMS_ITS | Encounter Summary ---
Author Organization [employer] [facility] Address [address] [place] [address] Care Team Providers Care Manager Asset Management Name Role Phone Juvenal Sams MD Primary Care Prov ider Encounter Details Date Type Department Care Team (Latest Contact Info) Description 04/10/2006 Inpatient Historical [facility] Cata Mccall Poisoning by Other and Unspecified Anticonvulsants (Primary Dx) Social History Tobacco Use Types Packs/Day Years Used Date Smoking Tobacco: Never Assessed Comments Unknown Sex and Gender Information Value Date Recorded Sex Assigned at Not on file Legal Sex Female 4:45 AM MEDICAL LABORATORY TECHNICIANS Gender Identity Not on file Sexual Orientation Not on file documented as of this encounter Plan of Treatment Not on file documented as of this encounter Visit Diagnoses Diagnosis Poisoning by other and unspecified anticonvulsants- Primary documented in this encounter Care Teams Manager Asset Management Relationship Specialty Start Date End Date Juvenal Sams MD PCP - General Family Practice 03/13/20 05/10/20 documented as of this encounter
--- OUTSIDE RECORDS SUMMARY | 2025-01-31 12:13 | XMS_ITS | Encounter Summary ---
Author Organization [facility] Address [address] [place] [address] Care Team Providers Care Gore Seamer Name Role Phone Juvenal Sams MD Primary Care Prov ider Encounter Details Date Type Department Care Team (Late st Contact Info) Description 08/01/2005 Outpatient Historical [facility] Internal Medicine Medical [place] A [address] [address] Derek Gao MD [address] [place], [place] [id number] Social History Tobacco Use Types Packs/Day Years Used Date Smoking Tobacco: Never Assessed Comments Unknown Sex and Gender Information Value Date Recorded Sex Assigned at Not on file Legal Sex Female 4:45 AM SILK SCREEN FRAME ASSEMBLER Gender Identity Not on file Sexual Orientation Not on file documented as of this encounter Last Filed Vital Signs Vital Sign Reading Time Taken Comments Blood Pressure 106/70 08/01/2005 3:00 PM SILK SCREEN FRAME ASSEMBLER Pulse 72 08/01/2005 3:00 PM SILK SCREEN FRAME ASSEMBLER Temperature 36.6 C (97.9 F) 08/01/2005 3:00 PM SILK SCREEN FRAME ASSEMBLER Respiratory Rate - - Oxygen Saturation - - Inhaled Oxygen Concentration - - Weight 79.8 kg (176 lb) 08/01/2005 3:00 PM SILK SCREEN FRAME ASSEMBLER Height - - Body Mass Index 30.21 01/21/2005 12:45 PM CDT documented in this encounter Plan of Treatment Not on file documented as of this encounter Visit Diagnoses Not on filedocumented in this encounter Care Teams Gore Seamer Relationship Specialty Start Date End Date Juvenal Sams MD PCP - General Family Practice 03/13/20 05/10/20 documented as of this encounter
--- OUTSIDE RECORDS SUMMARY | 2025-01-31 12:13 | XMS_ITS | Encounter Summary ---
Author Organization [facility] Address [address] [place] [address] Care Team Providers Care Ship Washer Name Role Phone Mehdi Rabago MD Unavailable Thierno Borrego DPM Unavailable [phone] Yamilka Thakur MD Unavailable [phone] Sandie Adair MD Primary Care Provider [phone] Encounter Details Date Type Department Care Team (Late st Contact Info) Description 12/28/2024 Results Follow-Up [facility] - [place] [address] Sandie Adair MD [address] [place] [address] Social History Tobacco Use Types Packs/Day Years Used Date Smoking Tobacco: Former Cigarettes Smokeless Tobacco: Never Comments:Smoked for 6 months then quit Alcohol Use Standard Drinks/Week Comments Not Currently 0 (1 standard drink = 0.6 oz pure alcohol) 2-3x a week; denies as of 12/06/21 AUDIT-C Answer Date Recorded Q1: How often do you have a drink containing alc ohol? 2-4 times a month 12/02/2023 Q2: How many drinks containi ng alcohol do you have on a typical day when you are drinking? 1 or 2 12/02/2023 Q3: How often do you have si x or more drinks on one occasion? Never 12/02/2023 Overall Financial Resource Strain (CARDIA) Answe r Date Recorded How hard is it for you to pa y for the very basics like food, housing, medical care, and heating? Not hard at all 03/04/2023 PHQ-2 Answer Date Recorded Patient Health Questionnaire-2 Score 0 12/17/2024 [facility] - Occupational Stress Questionnaire Answer Date Recorded Do you feel stress - tense, restless, nervous, or anxious, or unable to sleep at night because your mind is troubled all the time - these days? Only a little 03/04/2023 Hunger Vital Sign Answer Date Recorded Within the past 12 months, y ou worried that your food would run out before you got the money to buy more. Never true 03/04/20 23 Within the past 12 months, t he food you bought just didn't last and you didn't have money to get more. Never true 03/04/2023 PRAPARE - Transportation Answer Date Re corded In the past 12 months, has l ack of transportation kept you from medical appointments or from getting medications? No 08/2022 In the past 12 months, has l ack of transportation kept you from meetings, work, or from getting things needed for daily living? No 03/04/2023 Housing Stability Vital Sign Answer Romario e Recorded In the last 12 months, was t here a time when you were not able to pay the mortgage or rent on time? No 03/04/2023 In the last 12 months, how many places have you lived? 1 03/04/2023 In the last 12 months, was t here a time when you did not have a steady place to sleep or slept in a fdc (including now)? No 03/04/2023 Comments No Sex and Gender Information Value Date Recorded Sex Assigned at Female 08/15/2020 9:53 AM SPEECH AND HEARING DIRECTOR Legal Sex Female 6:21 AM SPEECH AND HEARING DIRECTOR Gender Identity Female 08/15/2020 9:53 AM SPEECH AND HEARING DIRECTOR Sexual Orientation Straight 08/15/2020 9: 53 AM SPEECH AND HEARING DIRECTOR documented as of this encounter Plan of Treatment Upcoming Encounters Date Type Department Care Team (Latest Contact Info) Description 03/10/2025 1:00 PM CDT Hospital Encounter [facility] [address] [place] [address] Manish eRynaga MD [address] [place] [address] Surgery General 03/10/2025 1:00 PM CDT - 03/10/2025 1:30 PM CDT Surgery [facility] [address] [place] [address] Manish Reynaga MD [address] [place] [address] COLONOSCOPY SCREEN 07/04/2025 8:00 AM SPEECH AND HEARING DIRECTOR Office Visit [address] [phone] Sandie Adair MD [address] [place] [address] 09/29/2025 1:00 PM SPEECH AND HEARING DIRECTOR Video Visit [facility] - Pulmonology [address] [place] [address] Mehdi Rabago MD [address] [facility] [address] [place] [phone] 12/23/2025 9:20 AM CDT Office Visit [address] [phone] [place] [address] Scheduled Procedures Name Priority Associated Diagnoses Date/Ti me COLONOSCOPY SCREEN Screen for colon cancer 03/10/2025 1:00 PM CDT documented as of this encounter Visit Diagnoses Not on filedocumented in this encounter Care Teams Ship Washer Relationship Specialty Start Date End Date Sandie Adair MD [address] [place] [address] PCP - General Family Medicine 12/17/24 Mehdi Rabago MD [address] [place] [phone] Pulmonary Disease 04/20/20 Thierno Borrego DPM [address] [facility] [place] [phone] Surgery 12/12/21 Yamilka Thakur MD [address] [place] [address] Physician Obstetrics and Gynecology 11/21/23 documented as of this encounter
--- OUTSIDE RECORDS SUMMARY | 2025-01-31 12:13 | XMS_ITS | Encounter Summary ---
Author Organization [facility] Address [address] [place] [address] Care Team Providers Care Director Telehealth Name Role Phone Juvenal Sams MD Primary Care Prov ider Encounter Details Date Type Department Care Team (Late st Contact Info) Description 12/19/2004 Outpatient Historical [facility] Derek Smalls MD 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
--- OUTSIDE RECORDS SUMMARY | 2025-01-31 12:13 | XMS_ITS | Encounter Summary ---
Author Organization [facility] Address 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
--- OUTSIDE RECORDS SUMMARY | 2025-01-31 12:13 | XMS_ITS | Encounter Summary ---
Author Organization [facility] Address [address] [place] [address] Care Team Providers Care Executive Creative Director Name Role Phone Juvenal Sams MD Primary Care Prov ider Encounter Details Date Type Department Care Team (Late st Contact Info) Description 12/14/2004 Outpatient Historical [facility] Internal Medicine Medical [place] [address] [address] Derek Gao MD [address] [facility] [address] [facility] [address] [place] [address] Social History Tobacco Use Types Packs/Day Years Used Date Smoking Tobacco: Never Assessed Comments Unknown Sex and Gender Information Value Date Recorded Sex Assigned at Not on file 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 Gender Identity Not on file Sexual Orientation Not on file documented as of this encounter Last Filed Vital Signs Vital Sign Reading Time Taken Comments Blood Pressure 100/72 12/14/2004 12:00 PM CDT Pulse 64 12/14/2004 12:00 PM CDT Temperature 35.8 C (96.5 F) 12/14/2004 12:00 PM CDT Respiratory Rate 12 12/14/2004 12:00 PM CDT Oxygen Saturation - - Inhaled Oxygen Concentration - - Weight 67.6 kg (149 lb) 12/14/2004 12:00 PM CDT Height 162.6 cm (5' 4) 12/14/2004 12:00 PM CDT Body Mass Index 25.58 12/14/2004 12:00 PM CDT documented in this encounter Plan of Treatment Not on file documented as of this encounter Visit Diagnoses Not on filedocumented in this encounter Care Teams Executive Creative Director Relationship Specialty Start Date End Date Juvenal Sams MD PCP - General Family Practice 03/13/20 05/10/20 documented as of this encounter
--- OUTSIDE RECORDS SUMMARY | 2025-01-31 12:13 | XMS_ITS | Encounter Summary ---
Author Organization [facility] Address [address] [place] [address] Care Team Providers Care Commission For The Blind Director Name Role Phone Flaquita, Juvenal Topete MD Primary Care Prov ider Encounter Details Date Type Department Care Team (Late st Contact Info) Description 01/21/[address] 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 Gender Identity Not on file Sexual Orientation Not on file documented as of this encounter Last Filed Vital Signs Vital Sign Reading Time Taken Comments Blood Pressure 100/60 01/21/2005 12:45 PM CDT Pulse 60 01/21/2005 12:45 PM CDT Temperature - - Respiratory Rate 18 01/21/2005 12:45 PM CDT Oxygen Saturation - - Inhaled Oxygen Concentration - - Weight 65.3 kg (144 lb) 01/21/2005 12:45 PM CDT Height 162.6 cm (5' 4) 01/21/2005 12:45 PM CDT Body Mass Index 24.72 01/21/2005 12:45 PM CDT documented in this encounter Plan of Treatment Not on file documented as of this encounter Visit Diagnoses Not on filedocumented in this encounter Care Teams Commission For The Blind Director Relationship Specialty Start Date End Date Juvenal Sams MD PCP - General Family Practice 03/13/20 05/10/20 documented as of this encounter
--- OUTSIDE RECORDS SUMMARY | 2025-01-31 12:13 | XMS_ITS | Encounter Summary ---
Author Organization [facility] Address 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
--- OUTSIDE RECORDS SUMMARY | 2025-01-31 12:13 | XMS_ITS | Encounter Summary ---
Author Organization [facility] Address [address] [place] [address] Care Team Providers Care Orthopedics Nurse Name Role Phone Juvenal Sams MD Primary Care Prov ider Encounter Details Date Type Department Care Team (Late st Contact Info) Description 06/14/2006 Outpatient Historical [facility] Support Serv. 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
--- OUTSIDE RECORDS SUMMARY | 2025-01-31 12:13 | XMS_ITS | Encounter Summary ---
Author Organization [facility] Address 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
--- OUTSIDE RECORDS SUMMARY | 2025-01-31 12:13 | XMS_ITS | Encounter Summary ---
Author Organization [facility] Address [address] [place] [address] Care Team Providers Care Loop Cutter Name Role Phone Juvenal Sams MD Primary Care Prov ider Encounter Details Date Type Department Care Team (Late st Contact Info) Description 10/11/2004 Outpatient Historical [facility] Internal Medicine Medical [place] 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 Gender Identity Not on file Sexual Orientation Not on file documented as of this encounter Last Filed Vital Signs Vital Sign Reading Time Taken Comments Blood Pressure 986/8 10/11/2004 11:00 AM ABORIGINAL COMMUNITY COUNCIL MEMBER Pulse 62 10/11/2004 11:00 AM ABORIGINAL COMMUNITY COUNCIL MEMBER Temperature 36.1 C (97 F) 10/11/2004 11:00 AM ABORIGINAL COMMUNITY COUNCIL MEMBER Respiratory Rate - - Oxygen Saturation - - Inhaled Oxygen Concentration - - Weight 67.6 kg (149 lb) 10/11/2004 11:00 AM ABORIGINAL COMMUNITY COUNCIL MEMBER Height - - Body Mass Index - - documented in this encounter Plan of Treatment Not on file documented as of this encounter Visit Diagnoses Not on filedocumented in this encounter Care Teams Loop Cutter Relationship Specialty Start Date End Date Juvenal Sams MD PCP - General Family Practice 03/13/20 05/10/20 documented as of this encounter
--- OUTSIDE RECORDS SUMMARY | 2025-01-31 12:13 | XMS_ITS | Encounter Summary ---
Author Organization [facility] Address [address] [place] [address] Care Team Providers Care Retail Performance Coach Name Role Phone Juvenal Sams MD Primary Care Prov ider Encounter Details Date Type Department Care Team (Late st Contact Info) Description 04/10/2007 Orders Only [facility] Internal Medicine Medical [facility] [address] [address] Luann Adrian MD [address] [address] Social History Tobacco Use Types Packs/Day Years Used Date Smoking Tobacco: Never Assessed Comments Unknown Sex and Gender Information Value Date Recorded Sex Assigned at Not on file 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 Sincerely yours, Luann Rice MD, MD - 12/18/2007 4:20 PM CDT [facility] LUANN ADRIAN MD [address] [place] [address] April 10, 2007 SANDIE SOLIZ [address] [place] [address] SANDIE SOLIZ has been under our care during the dates below: 04/10/07 May return to work: after 48 hours. RESTRICTIONS: Light duty. Can only lift the following number of pounds: 5 pounds. Sincerely yours, Luann Rice MD, MD - 12/18/2007 4:20 PM CDT BLOOD PRESSURE: 122/78 Right Arm Sitting TEMPERATURE: 98.1??f Oral PULSE: 88 Right Radial, Regular WEIGHT: 205lbs NURSE NAME: Zana Silva K ALLERGIES: Allergies are as listed. TOBACCO USE Patient does not currently use tobacco. MEDICATIONS: Medication list current. CHIEF COMPLAINT 04/09/2007 she was pulling out a shelf and it was stuck and when she pulled harder she instantly felt pain in her lower back. HISTORY: the pt had a backache that started yesterday after she was pulling out a shelf. she statesthat the pain was lower , no radiation and no weakness. HISTORY: 724.5-BACK PAIN The back pain has not changed. The patient denies a limitation of motion, notes stiffness, denies pain radiation. Currently the patient is off all medication. No recent laboratory work done. CURRENT PROBLEM LIST: 461.9 SINUSITIS UNSPECIFIED 724.5 BACK PAIN 780.4 VERTIGO/DIZZINESS 785.6 LYMPHADENOPATHY CURRENT MEDICATION LIST: EFFEXOR ORAL TABLET 75 MG, 1 Every Day CURRENT ALLERGY LIST: SULFA DRUGS ROS: GENERAL: Normal activity and energy level, no change in appetite. No major weight gain or loss. No malaise, chills, fever, diaphoresis.. ENT: No hearing loss, epistaxis, hoarseness or dysphagia. No sinus congestion.. ENDOCRINE: No heat or cold intolerance, no excessive thirst.. CARDIAC: No chest pain, palpitations, orthopnea, dyspnea on exertion, or paroxysmal nocturnal dyspnea.. RESPIRATORY: No dyspnea, cough, hemoptysis or wheezing.. : No frequency, urgency, hematuria or dysuria.. GI: No abdominal pain, nausea, vomiting, diarrhea, constipation, melena, or hematochezia.. MUSCULOSKELETAL: See HISTORY OF PRESENT ILLNESS. PHYSICAL EXAMINATION: CONSTITUTIONAL: GENERAL APPEARANCE: Healthy appearing patient in no distress. NECK/THYROID: Trachea midline. No thyroid enlargement, tenderness, or mass. No supraclavicular or cervical adenopathy. RESPIRATORY: Clear to auscultation and percussion. Normal respiratory effort. CARDIOVASCULAR: CARDIAC: Regular rhythm. No murmurs, rubs, or gallops. ARTERIAL: No aortic bruits. EDEMA/VARICOSITIES OF EXTREMITIES: No edema or varicosities. GASTROINTESTINAL: ABDOMEN: Soft, non-tender, without masses. Bowel sounds active. LIVER/SPLEEN/KIDNEY: No hepatosplenomegaly, tenderness or nodularity. Kidneys not palpable. MUSCULOSKELETAL EXAM: SPINE/RIBS/PELVIS: BILATERAL LOWER PARASPINAL MUSCLE TENDERNESS, full range of motion, normal rotation. EXTREMITIES: BILATERAL LOWER EXTREMITIES: No misalignment or tenderness. Full range of motion. Normal stability,strength and tone. NEUROLOGIC: DEEP TENDON REFLEXES: Patellar reflexes 2+/4+ bilaterally. Straight leg raising test within normal limits. ASSESSMENT/PLAN: 724.5-BACK PAIN ASSESSMENT: The patient's back pain has not changed. Will start medication for better control. Clinical guidelines reviewed. Protocol reviewed. will try the NSAID and a muscle relaxant for the next 10 days , if ineffective we may consider medrol pack. no imaging at this stage as there was no hx of trauma. MEDICATIONS: IBUPROFEN ORAL TABLET 600 MG, 1 Three Times A Day, 30 Dispensed, status: NEW PRESCRIPTION, 04/10/2007. CYCLOBENZAPRINE HCL ORAL TABLET 5 MG, 1 Every Day, 14 Dispensed, status: NEW PRESCRIPTION, 04/10/2007. TIME PHYSICIAN WITH PATIENT: TOTAL: 15 minutes. RETURN VISIT : Patient is to return on an as needed basis. Patient instructed to call in 2 weeks ifnot improving. Electronically Signed by: Luann Patton MD on Tuesday, April 10, 2007 Electronically Signed by: Nicole Thurman on Friday, May 04, 2007 documented in this encounter Plan of Treatment Not on file documented as of this encounter Visit Diagnoses Not on filedocumented in this encounter Care Teams Retail Performance Coach Relationship Specialty Start Date End Date Juvenal Sams MD PCP - General Family Practice 03/13/20 05/10/20 documented as of this encounter
--- OUTSIDE RECORDS SUMMARY | 2025-01-31 12:13 | XMS_ITS | Encounter Summary ---
Author Organization [employer] Address 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
--- OUTSIDE RECORDS SUMMARY | 2025-01-31 12:13 | XMS_ITS | Encounter Summary ---
Author Organization [facility] Address 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 Gender Identity Not on file Sexual Orientation Not on file documented as of this encounter Plan of Treatment Not on file documented as of this encounter Procedures Procedure Name Priority Date/Time Associated Diagnosis Comments CBC WITH DIFFERENTIAL Routine 06/14/2006 4:50 AM MACHINE FITTER CBC WITH DIFFERENTIAL Routine 06/14/2006 4:50 AM MACHINE FITTER documented in this encounter Results * CBC WITH DIFFERENTIAL (06/14/2006 4:50 AM MACHINE FITTER) NEUTROPHILS 60 45 - 70 % INTERFAC E SYSTEM LYMPHOCYTES 30 16 - 45 % INTERFAC E SYSTEM MONOCYTES 8 3 - 13 % INTERFACE SYSTEM EOSINOPHILS 2 0 - 7 % INTERFAC E SYSTEM BASOPHILS 0 0 - 2 % INTERFACE SYSTEM NEUTROPHIL ABSOLUTE 4.71 1.90 - 7.00 K/uL INTERFACE SYSTEM LYMPHOCYTE ABSOLUTE 2.37 0.70 - 4.50 K/uL INTERFACE SYSTEM MONOCYTE ABSOLUTE 0.62 0.10 - 1.30 K/uL INTERFACE SYSTEM EOSINOPHIL ABSOLUTE 0.13 0.00 - 0.70 K/uL INTERFACE SYSTEM BASOPHILS ABSOLUTE 0.02 0.00 - 0.20 K/uL INTERFACE SYSTEM 06/14/2006 4:50 AM MACHINE FITTER Van Levin MD HEMATOLOGY ORDERABLES Final Result INTERFACE SYSTEM Refer to clinic/hospital department * CBC WITH DIFFERENTIAL (06/14/2006 4:50 AM MACHINE FITTER) WBC 7.9 4.0 - 9.8 K/uL INTERFACE SYSTEM RBC 4.44 3.90 - 4.90 M/uL INTERFACE SYSTEM HEMOGLOBIN 13.0 11.8 - 14.8 g/dL INTERFACE SYSTEM HEMATOCRIT 38.8 35.5 - 44.0 % INTERFACE SYSTEM MCV 87.4 82.0 - 99.0 fL INTERFACE SYSTEM MCH 29.3 27.2 - 32.6 pg INTERFACE SYSTEM MCHC 33.5 31.5 - 35.5 % INTERFACE SYSTEM RDW 12.7 11.5 - 14.5 % INTERFACE SYSTEM RDW-STDEV 40.8 37.1 - 48.7 fL INTERFACE SYSTEM PLATELETS 261 140 - 350 K/uL INTERFACE SYSTEM MPV 10.7 9.3 - 12.4 fL INTERFACE SYSTEM 06/14/2006 4:50 AM MACHINE FITTER Van Levin MD HEMATOLOGY ORDERABLES Final Result INTERFACE SYSTEM Refer to clinic/hospital department documented in this encounter Visit Diagnoses Diagnosis Myoclonus- Primary documented in this encounter Care Teams Strategic Sourcing Manager Relationship Specialty Start Date End Date Juvenal Sams MD PCP - General Family Practice 03/13/20 05/10/20 documented as of this encounter
--- OUTSIDE RECORDS SUMMARY | 2025-01-31 12:13 | XMS_ITS | Encounter Summary ---
Author Organization [facility] Address 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
--- OUTSIDE RECORDS SUMMARY | 2025-01-31 12:13 | XMS_ITS | Clinical Summary ---
Author Organization [facility] Doctor Evidence Address [address] [place] [address] Care Team Providers Care Strategic Business Development Name Role Phone Mehdi Rabago MD Unavailable Thierno Borrego DPM Unavailable [phone] Yamilka Thakur MD Unavailable [phone] Yany Adair MD Primary Care Provider [phone] Source Comments [facility],non-owned Affiliates and Associated Physician Practices is amultiple site organization consisting of ambulatory clinics and hospital sitesin [place], [place], [place] and [place]. This disclosure is being madepursuant to the Care Everywhere program and may not contain all information available regarding this patient. Last updated 18.[facility] Allergies Active Allergy Reactions Criticality Noted Date Comments Amoxicillin Rash Medium 08/13/2023 Cephalexin Rash Medium 03/31/2020 Ciprofloxacin Urticaria Medium 04/16/2020 Doxycycline Rash Medium 04/13/2020 Sulfa Antibiotics Rash Medium 12/16/2024 Sulfa Drugs Unknown Medium 10/08/2004 Carbamazepine Rash Medium 02/28/2017 Medications * This document contains information received from the source organization and may not represent a complete record from that organization. * Be aware that medications may not be up to date on this document. Alwaysverify current medications with the patient. levonorgestrel (MIRENA) 20 MCG/24HR IUD Active multivitamin daily tablet Take 1 (one) tablet by mouth daily with food Active topiramate (Topamax) 50 MG tablet 03/26/20 23 Active traMADol (Ultram) 50 MG tabletIndications :Acute pain of left knee,Fibromyalgia Take 1 (one) tablet by mouth every 6 hours as needed pain 12 tablet 05/11/20 24 Active Additional Information Patient not taking.Reported on 12/17/2024 traZODone (Desyrel) 50 MG tablet Take 3 (three) tablets by mouth at bedtime Take two (100mg) or 3 tablets (150mg) a night as needed for sleep 180 tablet 2 07/06/20 24 Active Additional Information Patient not taking.Reported on 12/17/2024 DULoxetine (Cymbalta) 30 MG capsule Take 3 (three) capsules by mouth once daily 270 capsule 2 07/06/20 24 Active rOPINIRole (Requip) 3 MG tablet TAKE 2 TABLETS BY MOUTH EVERY NIGHT 2 TO 3 HOURS BEFORE BEDTIME 180 tablet 11/13/19 25 Active DULoxetine (Cymbalta) 30 MG capsule Take 1 (one) capsule by mouth once daily 09/16/19 25 Active doxepin (SINEquan) 25 MG capsule 1 (one) capsule at bedtime 09/16/19 25 Active Estring 7.5 MCG/24HR RING 10/30/19 25 Active lurasidone (Latuda) 60 MG tablet Take 1 (one) tablet by mouth daily with food 11/28/19 25 Active naltrexone (Revia) 50 MG tablet Take 0.5 (one-half) tablet by mouth once daily 11/03/19 25 Active Mounjaro 7.5 MG/0.5ML injection Inject 7.5 (seven and one-half) mg subcutaneously every 7 days (once a week) Active buPROPion XL 24hr (Wellbutrin-XL) 150 MG tablet Take 1 (one) tablet by mouth every morning 11/17/19 25 Active Alpha-Lipoic Acid 600 MGIndications:Trisha betic polyneuropathy associated with diabetes mellitus due to underlying condition (HCC) Take 600 mg by mouth once daily 90 capsule 3 12/18/19 25 Active omeprazole (PriLOSEC) 20 MG capsule Take 1 (one) capsule by mouth once daily 90 capsule 3 01/04/20 25 Active levothyroxine (Synthroid) 50 MCG tabletIndications :Acquired hypothyroidism Take 1 (one) tablet by mouth daily before breakfast 90 tablet 1 01/04/20 25 Active fluticasone propionate (Flonase) 50 MCG/ACT nasal sprayIndications: Allergic rhinitis, unspecified seasonality, unspecified trigger [place] 2 (two) sprays into each nostril once daily 48 g 1 01/06/20 25 Active gabapentin (Neurontin) 800 MG tabletIndications :Diabetic polyneuropathy associated with diabetes mellitus due to underlying condition (HCC) Take 1 (one) tablet by mouth 3 times daily 270 tablet 01/06/20 25 Active polyethylene glycol (Golytely) solution Drink half of prep solution at 5pm the night before colonoscopy. Finish the prep at 4am the day of test. 4000 mL 01/27/20 25 Active polyethylene glycol 3350 (Miralax) 17 GM/SCOOP powder Take a dose twice a day starting a week before your colonoscopy 238 g 01/27/20 25 Active fluticasone propionate (Flonase) 50 MCG/ACT nasal sprayIndications: Allergic rhinitis, unspecified seasonality, unspecified trigger [place] 2 (two) sprays into each nostril once daily 48 g 4 12/18/19 25 025 Disconti nued(Reo rder) gabapentin (Neurontin) 600 MG tabletIndications :Diabetic polyneuropathy associated with diabetes mellitus due to underlying condition (HCC) Take 1 (one) tablet by mouth 3 times daily 270 tablet 4 12/18/19 25 025 Disconti nued(Dos e Adjustme nt) Active Problems Problem Noted Date Diagnosed Date Unable to concentrate 12/17/2024 Difficulty concentrating 12/16/2024 Generalized anxiety disorder 12/16/2024 Bipolar 1 disorder 12/16/2024 Chronic insomnia 12/16/2024 Primary insomnia 12/16/2024 Diabetic polyneuropathy asso ciated with diabetes mellitus due to underlying condition 09/07/2024 Degenerative arthritis of cervical spine 024 RAD (reactive airway disease ), mild persistent, uncomplicated 09/06/2022 Prediabetes 09/06/2022 Bipolar disorder, unspecified 12/20/2021 Overview (12/20/2021): Ov 12/18/21 Suzy Musa MD Fibromyalgia 01/05/2021 09/15/2023 Restless legs syndrome (RLS) 02/21/2020 Idiopathic neuropathy 02/21/2020 Restless legs 02/21/2020 Hypothyroidism 01/26/2016 Vitamin D deficiency 01/26/2016 Resolved Problems Problem Noted Date Diagnosed Date Resolved Date Diabetic ulcer of right lower leg 09/06/2022 09/15/2023 BMI 40.0-44.9, adult 05/24/2020 024 Overview (12/20/2021): Ov 12/12/21 Stefanie Loaiza, [employer]-PUBLIC INFORMATION OFFICER Prediabetes 08/04/2019 11/15/2022 Bipolar I disorder, most rec ent episode (or current) manic, moderate 04/16/2018 11/15/2022 Exudative age-related macula r degeneration of both eyes with active choroidal neovascularization 12/23/2017 09/15/2023 ISIS (obstructive sleep apnea) 04/18/2015 09/15/2023 Insomnia 08/20/2013 11/21/2023 BMI 50.0-59.9, adult 08/20/2013 022 Encounters Date Type Department Care Team Description 01/26/2025 Orders Only [facility] ENDOSCOPY [address] [place] [address] Emelia Restrepo RN 01/05/2025 Orders Only [address] [phone] Yany Adair MD Diabetic polyneuropathy associated with diabetes mellitus due to underlying condition ([facility]) 01/03/[address] [phone] Yany Adair MD MEDICATION REFILL 12/31/[address] [phone] Yany Adair MD MEDICATION REFILL 12/28/2024 Results Follow-Up [address] [phone] Yany Adair MD 12/17/2024 9:20 AM CDT Office Visit [address] [phone] Yany Adair MD Annual physical exam (Primary Dx); Need for vaccination; Diabetic polyneuropathy associated with diabetes mellitus due to underlying condition (HCC); Colon cancer screening; Allergic rhinitis, unspecified seasonality, unspecified trigger; Bipolar 1 disorder (HCC); Acquired hypothyroidism; Fibromyalgia 12/17/2024 Travel 12/08/2024 Orders Only [address] [phone] Yany Adair MD 12/07/[address] [address] Pcp, [facility] Medication Clarification 12/03/[address] [address] Deepak Kovacs Jr., MD Refill Request 11/12/2024 Refill [facility] Internal Medicine [address] [place] [phone] Ann Issa MD Refill Request 11/11/2024 Refill [facility] Internal Medicine [address] [place] [phone] Deepak Kovacs Jr., MD Refill Request from Last 3 Months Immunizations Immunization Administration Dates Next Due INFLUENZA VACCINE, TRIV. (AF LURIA, FLUZONE TRIVALENT; 6MO+) (IIV3) 07/10/2016,05/18/2013 HEP B VACCINE, ADULT 3 DOSE 08/20/2013 INFLUENZA VACCINE 07/09/2016,04/20/2015 INFLUENZA VACCINE, CELL CULT URE, QUADR. (FLUCELVAX QUADRIVALENT; 6MO+) (CCIIV4) 06/18/2022 INFLUENZA VACCINE, QUADR. (F LUZONE; FLULAVAL; FLUARIX; AFLURIA QUADRIVALENT; 6MO+), 0.5 ML (IIV4) 05/18/2021,06/02/2020,05/25/2019,2017,08/25/2017 INFLUENZA VACCINE, TRIV. (FL UZONE; FLULAVAL; FLUARIX; AFLURIA TRIVALENT; 6MO+), 0.5 ML (IIV3) 07/09/2016,04/20/2015 MMR 08/20/2013 PNEUMOCOCCAL PPSV23 02/21/2020 TDAP (7yrs+) 03/27/2020,08/20/2013 Family History Medical History Relation Name Comments Bipolar Disorder Brother Other - Cardiac Brother CAD (Coronary Artery Disease) Father Diabetes - Type 2 Father CVA Maternal Grandmother Hypertension Maternal Grandmother Cancer - Breast Mother approx. age Multiple Sclerosis Mother Cancer Sister 1 brain cancer Arthritis - Rheumatoid Sister 2 Relation Name Status Comments Brother Alive Father Maternal Grandfather Maternal Grandmother Mother Alive Paternal Grandfather Paternal Grandmother Sister 1 Sister 2 Alive Social History Tobacco Use Types Packs/Day Years Used Date Smoking Tobacco: Former Cigarettes Smokeless Tobacco: Never Tobacco Cessation:Counseling Given: Not Answered Comments:Smoked for 6 months then quit Alcohol [...] Recorded Patient Health Questionnaire-2 Score 0 12/17/2024 [facility] - Occupational Stress [...] place to sleep or slept in a half-way (including now)? No 03/04/2023 Comments No Sex and Gender Information Value Date Recorded Sex Assigned at Female 08/15/2020 9:53 AM BEVERAGE DISTILLER Legal Sex Female 6:21 AM BEVERAGE DISTILLER Gender Identity Female 08/15/2020 9:53 AM BEVERAGE DISTILLER Sexual Orientation Straight 08/15/2020 9: 53 AM BEVERAGE DISTILLER Last Filed Vital Signs Vital Sign Reading Time Taken Comments Blood Pressure 106/51 12/17/2024 9:23 AM CDT Pulse 63 12/17/2024 9:23 AM CDT Temperature 36.6 C (97.8 F) 07/06/2024 8:58 AM BEVERAGE DISTILLER Respiratory Rate 18 09/07/2024 11:57 AM BEVERAGE DISTILLER Oxygen Saturation 100% 12/17/2024 9:23 AM CDT Inhaled Oxygen Concentration - - Weight 66.7 kg (147 lb) 12/17/2024 9:23 AM CDT Height 160 cm (5' 3) 12/17/2024 9:23 AM CDT Body Mass Index 26.04 12/17/2024 9:23 AM CDT Plan of Treatment Upcoming Encounters Date Type Department Care Team (Latest Contact Info) Description 03/10/2025 1:00 PM CDT Hospital Encounter [facility] - Endoscopy Services [address] [place] [address] Manish Reynaga MD [address] [facility] 2[address] DIV [place] [phone] Surgery General 03/10/2025 1:00 PM CDT - 03/10/2025 1:30 PM CDT Surgery [facility] - Endoscopy [facility] [address] [place] [address] Manish Reynaga MD [address] [facility] [address] DIV [place] [phone] COLONOSCOPY SCREEN 07/04/2025 8:00 AM BEVERAGE DISTILLER Office Visit [address] [phone] Yany Adair MD [address] [place] [address] 09/29/2025 1:00 PM BEVERAGE DISTILLER Video Visit [facility] - Pulmonology [address] [facility], [address] [place] [address] Mehdi Rabago MD [address] [place] [address] [address] [place] [phone] 12/23/2025 9:20 AM CDT Office Visit [address] [phone] [place] [address] Scheduled Procedures Name Priority Associated Diagnoses Date/Ti me COLONOSCOPY SCREEN Screen for colon cancer 03/10/2025 1:00 PM CDT Health Maintenance Due Date Last Done Comments COLON MONITORING 1976 COLONOSCOPY - COLON CA SCREENING 1976 CT COLONOGRAPHY - COLON CA SCREENING 1976 FIT - COLON CA SCREENING 1976 FLEX SIG - COLON CA SCREENING 1976 MEDICARE AWV 12 MONTHS 1976 HIV SCREENING 1991 HEPATITIS C SCREENING 08/06/1994 HEPATITIS B VACCINE (2 of 3 - 19+ 3-dose series) 09/17/2013 08/20/2013 DIABETES-STATIN 2016 PNEUMOCOCCAL VACCINE (2 of 2 - PCV) 02/20/2021 02/21/2020 COVID-19 VACCINE (3 - 2023- season) 2024 06/08/2021, 05/18/2021 DIABETES RETINOPATHY SCREENING 09/07/2024 08/18/2020 (Done Outside Per Report), 05/12/2020 (Done Outside Per Report) DIABETES-HGB A1C 12/27/2024 09/29/2024, , 06/29/2022, Additional history exists INFLUENZA VACCINE (Season Ended) 2025 06/18/2022, 05/18/2021, 06/02/2020, Additional history exists COLOGUARD (AGES 45-75) - COLON CA SCREENING 07/21/2025 07/21/2022, 07/21/2022 Colorectal Cancer Screening 07/21/2025 DIABETES-SERUM CREATININE 09/29/20252024, 09/04/2022, 06/29/2022, Additional history exists DIABETES - URINE PROTEIN SCREENING 12/17/2025 12/17/2024, 06/02/2020 DIABETES-FOOT EXAM WITH MONOFILAMENT 12/17/2025 12/17/2024, 12/17/2024 MAMMOGRAM 02/09/2026 02/10/2024, 12/02, 11/26/2021 PAP SMEAR 05/04/2026 05/04/2023 (Done Outside Per Patient) ZOSTER VACCINE (1 of 2) 2026 DTAP/TDAP/TD VACCINES (3 - Td or Tdap) 03/27/2030 03/27/2020, 08/20/2013 HIB VACCINE Aged Out No longer eligi ble based on patient's age to complete this topic HPV VACCINE Aged Out No longer eligi ble based on patient's age to complete this topic MENINGOCOCCAL (Group B) VACCINE SHARED DECISION-MAKING Aged Out No longer eligible based on patient's age to complete this topic MENINGOCOCCAL GROUPS A/C/Y/W VACCINE Aged Out No longer eligible based on patient's age to complete this topic Procedures Procedure Name Priority Date/Time Associated Diagnosis Comments MICROALB/CREAT RATIO URINE RANDOM PANEL Routine 12/17/2024 12:46 PM CDT Diabetic polyneuropathy associated with diabetes mellitus due to underlying condition (HCC) COMPREHENSIVE METABOLIC PANEL Routine 09/29/2024 8:48 AM BEVERAGE DISTILLER Acquired hypothyroidism Vitamin D deficiency Prediabetes Fatigue, unspecified type HEMOGLOBIN A1C Routine 09/29/2024 8:48 AM BEVERAGE DISTILLER Acquired hypothyroidism Vitamin D deficiency Prediabetes Fatigue, unspecified type MAMMO BILAT SCREENING W MARLA Routine 02/10/2024 4:33 PM CDT Visit for screening mammogram COLOGUARD TEST Routine 07/21/2022 12:30 PM BEVERAGE DISTILLER Colon cancer screening from Last 3 Months or Most Recently Relevant to Health Maintenance Results * MICROALB/CREAT RATIO URINE RANDOM PANEL (12/17/2024 12:46 PM CDT) Creatinine Urine 49.2 Not Estab. mg/dL [facility] ACCOUNT BILL Microalbumin Urine 4.9 Not Estab. ug/mL [facility] ACCOUNT BILL Microalbumin/Crea tinine Ratio 10 0 - 29 mg/g creat [facility] ACCOUNT BILL Comment: Normal: 0 - 29 Moderately increased: 30 - 300 Severely increased: >300 Urine URINE SPECIMEN OBTAINED BY CLEAN CATCH PROCEDURE / Unknown 12/17/2024 12:46 PM CDT 12/21/2024 Comment:Urine Random Release Narrative [facility] ACCOUNT BILL - 12/21/2024 3:10 PM CDT Performed at: 01 - [facility] [address] [id number] [employer] Carver: Jose Serrano PhD, Phone: [phone] us Yany Adair MD LAB - URINE CHEMISTRY ORDERABLE S Final Result Performing Organization Address [facility] de Phone Number [facility] ACCOUNT BILL [address] [place] [address] * HEMOGLOBIN A1C (09/29/2024 8:48 AM BEVERAGE DISTILLER) Hemoglobin A1c 5.3 4.8 - 5.6 % [facility] ACCOUNT BILL Comment: Prediabetes: 5.7 - 6.4 Diabetes: >6.4 Glycemic control for adults with diabetes: <7.0 Blood BLOOD SPECIMEN / Unknown 09/29/2024 8:48 AM BEVERAGE DISTILLER 09/29/2024 Narrative [facility] ACCOUNT BILL - 09/30/2024 7:09 AM BEVERAGE DISTILLER Performed at: - [facility] [address] [id number] [employer]: Jose Serrano PhD, Phone: [phone] us Deepak Kovacs Jr., MD LAB - CHEMISTRY SERGEY DAVIS Final Result Performing Organization Address [facility] de Phone Number [facility] ACCOUNT BILL [address] [place] [address] * (ABNORMAL) COMPREHENSIVE METABOLIC PANEL (09/29/2024 8:48 AM BEVERAGE DISTILLER) Glucose 67(L) 70 - 99 mg/dL [facility] ACCOUNT BILL BUN 15 6 - 24 mg/dL [facility] ACCOUNT BILL Creatinine 0.81 0.57 - 1.00 mg/dL [facility] ACCOUNT BILL eGFR by CKD-EPI 89 >59 mL/min/1.7 3 [facility] ACCOUNT BILL BUN/Creatinine Ratio 19 9 - 23 [facility] ACCOUNT BILL Sodium 142 134 - 144 mmol/L [facility] ACCOUNT BILL Potassium 3.9 3.5 - 5.2 mmol/L [facility] ACCOUNT BILL Chloride 107(H) 96 - 106 mmol/L [facility] ACCOUNT BILL CO2 24 20 - 29 mmol/L [facility] ACCOUNT BILL Calcium 9.3 8.7 - 10.2 mg/dL [facility] ACCOUNT BILL Protein Total 6.1 6.0 - 8.5 g/dL [facility] ACCOUNT BILL Albumin 4.3 3.9 - 4.9 g/dL [facility] ACCOUNT BILL Globulin Total 1.8 1.5 - 4.5 g/dL [facility] ACCOUNT BILL Bilirubin Total 0.5 0.0 - 1.2 mg/dL [facility] ACCOUNT BILL Alkaline Phosphatase 57 44 - 121 IU/L [facility] ACCOUNT BILL AST 31 0 - 40 IU/L [facility] ACCOUNT BILL ALT 29 0 - 32 IU/L [facility] ACCOUNT BILL Blood BLOOD SPECIMEN / Unknown 09/29/2024 8:48 AM BEVERAGE DISTILLER 09/29/2024 Narrative [facility] ACCOUNT BILL - 09/30/2024 7:09 AM BEVERAGE DISTILLER Performed at: 01 - [facility] [id number] [employer]: Jose Serrano PhD, Phone: [phone] us Deepak Kovacs Jr., MD LAB - CHEMISTRY SERGEY DAVIS Final Result Performing Organization Address City/State/[facility] Co de Phone Number [facility] ACCOUNT BILL [address] [place] [address] * MAMMO BILAT SCREENING W MARLA (02/10/2024 4:33 PM CDT) Anatomical Region Laterality Modality Breast Bilateral Mammography 02/11/2024 8:17 AM CDT Impressions 02/11/2024 8:19 AM CDT : Annual screening mammography is recommended. OVERALL FINAL ASSESSMENT: BI-RADS Category 1: Negative. > Interpreting Provider: Oliver Santiago MD on 02/11/2024 8:19 AM Narrative 02/11/2024 8:19 AM CDT EXAMINATION: BILATERAL DIGITAL SCREENING MAMMOGRAM AND BILATERAL BREAST TOMOSYNTHESIS HISTORY: Screening. COMPARISON: Serial examinations dating back to November 26, 2021. TECHNIQUE: BILATERAL digital breast tomosynthesis (DBT) and synthetic 2D digital mammogram images were obtained (bilateral craniocaudal and mediolateral oblique projections) including computer aided detection (CAD.) BREAST PARENCHYMAL COMPOSITION:Category A: The breasts are almost entirely fatty. MAMMOGRAM FINDINGS: There is no suspicious finding in either breast. us Lidia Hernandez MD MAMMO ORDERABLES Final Result * [id number] COLOGUARD TEST *Associate with Z12.11 OR Z12.12 Dx Codes* (07/21/2022 12:30 PM BEVERAGE DISTILLER) Cologuard Negative Negative [facility] Comment: NEGATIVE TEST RESULT. A negative Cologuard result indicates a low likelihood that a colorectal cancer (CRC) or advanced adenoma (adenomatous polyps with more advanced pre-malignant features) is present. The chance that a person with a negative Cologuard test has a colorectal cancer is less than 1 in 1500 (negative predictive value >99.9%) or has an advanced adenoma is less than 5.3% (negative predictive value 94.7%). These data are based on a prospective cross-sectional study of 10,000 individuals at average risk for colorectal cancer who were screened with both Cologuard and colonoscopy. (Jermain Galeana et al, N Engl J Med 2014;370(14):9965-4155) The normal value (reference range) for this assay is negative. COLOGUARD RE-SCREENING RECOMMENDATION: Periodic colorectal cancer screening is an important part of preventive healthcare for asymptomatic individuals at average risk for colorectal cancer. Following a negative Cologuard result, the [place] [employer] Society and U.S. Multi-Society Task Force screening guidelines recommend a Cologuard re-screening interval of 3 years. References: [place] [employer] Guideline for Colorectal Cancer Screening: https://www.cancer.org/cancer/otlsi-fittjp-fckzvh/cmqvgjifn-qxuqnenkv-hzaraji/ acs-recommendations.html.; Yo LOREDO, Robby SHEA, Karla BeltránK, Colorectal Cancer Screening: Recommendations for Physicians and Patients from the U.S. Multi-Society Task Force on Colorectal Cancer Screening , Am J Gastroenterology 2017; 112:6717-1276. TEST DESCRIPTION: Composite algorithmic analysis of stool DNA-biomarkers with hemoglobin immunoassay. Quantitative values of individual biomarkers are not reportable and are not associated with individual biomarker result reference ranges. Cologuard is intended for colorectal cancer screening of adults of either sex, 45 years or older, who are at average-risk for colorectal cancer (CRC). Cologuard has been approved for use by the U.S. FDA. The performance of Cologuard was established in a cross sectional study of average-risk adults aged 50-84. Cologuard performance in patients ages 45 to 49 years was estimated by sub-group analysis of near-age groups. Colonoscopies performed for a positive result may find as the most clinically significant lesion: colorectal cancer [4.0%], advanced adenoma (including sessile serrated polyps greater than or equal to 1cm diameter) [20%] or non- advanced adenoma [31%]; or no colorectal neoplasia [45%]. These estimates are derived from a prospective cross-sectional screening study of 10,000 individuals at average risk for colorectal cancer who were screened with both Cologuard and colonoscopy. (Jermain Carr al, N Engl J Med 2014;370(14):3335-5424.) Cologuard may produce a false negative or false positive result (no colorectal cancer or precancerous polyp present at colonoscopy follow up). A negative Cologuard test result does not guarantee the absence of CRC or advanced adenoma (pre-cancer). The current Cologuard screening interval is every 3 years. ([place] [employer] and U.S. Multi-Society Task Force). Cologuard performance data in a 10,000 patient pivotal study using colonoscopy as the reference method can be accessed at the following location: www.[employer]/results. Additional description of the Cologuard test process, warnings and precautions can be found at www.[employer].com. Stool STOOL SPECIMEN / Unknown 07/21/2022 12:30 PM BEVERAGE DISTILLER 07/23/2022 10:59 AM BEVERAGE DISTILLER us Lidia Hernandez MD LAB - CHEMISTRY ORDERABLES Final Result [employer] [address] [place] [id number] [employer] [address] [place] [address]. [place] [address] from Last 3 Months or Most Recently Relevant to Health [place] [address] MEDICARE Advance Directives * Full Code (Latest Code Status on File) Date Activated Date Inactivated Comments 04/13/2020 4:13 AM 04/15/2020 1:49 PM Care Teams Strategic Business Development Relationship Specialty Start Date End Date Yany Adair MD [address] [place] [address] PCP - General Family Medicine 12/17/24 Mehdi Rabago MD [address] [place] [address] Pulmonary Disease 04/20/20 Thierno Borrego DPM [address] [place] [address] Surgery 12/12/21 Yamilka Thakur MD [address] [place] [address] Physician Obstetrics and Gynecology 11/21/23
--- OUTSIDE RECORDS SUMMARY | 2025-01-31 12:13 | XMS_ITS | Clinical Summary ---
Author Organization [facility] Address [address] [place] [address] Care Team Providers Care Abrasive Grader Helper Name Role Phone Sams, Ma Adali Topete MD Primary Care Prov ider Allergies Active Allergy Reactions Criticality Noted Date Comments Cephalexin Rash Medium 09/13/2021 Sulfa (Sulfonamide Antibiotics) Carbamazepine Rash Medium 09/13/2021 Surgical History Surgery Date Site/Laterality Comments COSMETIC SURGERY CHOLECYSTECTOMY Medical History Medical History Date Comments Thyroid disease Fibromyalgia Diabetes mellitus (HCC) Neuropathy Bipolar affective (HCC) Social History Tobacco Use Types Packs/Day Years Used Date Smoking Tobacco: Never Smokeless Tobacco: Never Alcohol Use Standard Drinks/Week Comments Not Currently 0 (1 standard drink = 0.6 oz pur e alcohol) Personal Safety Answer Date Recorded Getting School Help Needed Not on file 10/17 Comments No Sex and Gender Information Value Date Recorded Sex Assigned at Not on file Legal Sex Female 12:26 PM PASTEURISER OPERATOR Gender Identity Not on file Sexual Orientation Not on file Obstetrics History Last Filed Vital Signs Vital Sign Reading Time Taken Comments Blood Pressure 142/71 09/14/2021 12:23 AM PASTEURISER OPERATOR Pulse 108 09/13/2021 11:40 PM PASTEURISER OPERATOR Temperature 36.7 C (98 F) 09/13/2021 6:24 PM PASTEURISER OPERATOR Respiratory Rate 18 09/13/2021 8:59 PM PASTEURISER OPERATOR Oxygen Saturation 98% 09/13/2021 11:40 PM PASTEURISER OPERATOR Inhaled Oxygen Concentration - - Weight 147.4 kg (325 lb) 09/13/2021 6:24 PM PASTEURISER OPERATOR Height 160 cm (5' 3) 09/13/2021 6:24 PM PASTEURISER OPERATOR Body Mass Index 57.57 09/13/2021 6:24 PM PASTEURISER OPERATOR Plan of Treatment Not on file Insurance ANTHEM [employer] TRADITIONAL MATT ACCESS CHOICE Care Teams Abrasive Grader Helper Relationship Specialty Start Date End Date Juvenal Sams MD PCP - General 10/20/18
--- OUTSIDE RECORDS SUMMARY | 2025-01-31 12:13 | XMS_ITS | Referral Summary ---
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 Gender Identity Not on file Sexual Orientation Not on file Last Filed Vital Signs Vital Sign Reading Time Taken Comments Blood Pressure 142/71 09/14/2021 12:23 AM TELEPHONE INSTALLER Pulse 108 09/13/2021 11:40 PM TELEPHONE INSTALLER Temperature 36.7 C (98 F) 09/13/2021 6:24 PM TELEPHONE INSTALLER Respiratory Rate 18 09/13/2021 8:59 PM TELEPHONE INSTALLER Oxygen Saturation 98% 09/13/2021 11:40 PM TELEPHONE INSTALLER Inhaled Oxygen Concentration - - Weight 147.4 kg (325 lb) 09/13/2021 6:24 PM TELEPHONE INSTALLER Height 160 cm (5' 3) 09/13/2021 6:24 PM TELEPHONE INSTALLER Body Mass Index 57.57 09/13/2021 6:24 PM TELEPHONE INSTALLER Plan of Treatment Not on file Insurance ANTHEM TRADITIONAL ANTHEM TRADITIONAL ANTHEM ACCESS CHOICE Care Teams Group Director Relationship Specialty Start Date End Date Juvenal Sams MD [facility] - General 10/20/18
--- OUTSIDE RECORDS SUMMARY | 2025-01-31 12:13 | XMS_ITS | Encounter Summary ---
Author Organization [facility] Address 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
--- NOTE | 2025-01-31 12:37 | ECG_ITS ---
Test Date: 2025-01-31 12:48:24 Measurements Intervals [place] Rate: 53 P: 66 FL: 133 QRS: 76 QRSD: 94 T: 53 QT: 401 QTc: 379 Interpretive Statements SINUS BRADYCARDIA NONSPECIFIC T-WAVE ABNORMALITY- ANTERIOR LEADS BORDERLINE ECG No previous ECG available for comparison Electronically Signed On 01-31-2025 12:57:24 CDT by Bala Banuelos D.O.
--- NOTE | 2025-01-31 12:38 | ED_ITS ---
HPI - Weakness General Chief complaint: Dental/Oral Stated complaint: jaw pain and swelling, rash Time Seen by Provider: 01/31/25 11:59 History of Present Illness HPI Narrative: 49-year-old female with a past medical history including fibromyalgia. She presents to the emergency department with multiple complaints including jaw pain and some swelling over the right side of her jaw and face, paresthesias and muscle twitching in bilateral legs at the calfs and neuropathy. She states she called her primary care doctor who referred to the emergency department for evaluation. Patient denies any chest pain, shortness a breath, abdominal pain, back pain, nausea, vomiting, weakness but does state that she has been more tired lately and attributes to the fibromyalgia. No trauma or injury. Previous surgical history including gastric sleeve 3 years ago. No recent medication or diet changes. Related Data Home Medications ?Medication ?Instructions ?Recorded ?Confirmed ?Last Taken ?Type baclofen 10 mg tablet mg 12/19/19 Unknown History budesonide 90 mcg/actuation breath inhalation 12/19/19 Unknown History activated powder inhaler (Pulmicort Flexhaler) cetirizine 10 mg tablet mg 12/19/19 Unknown History duloxetine 20 mg capsule,delayed mg PO 12/19/19 Unknown History release fluticasone propionate 50 intranasal 12/19/19 Unknown History mcg/actuation nasal spray,suspension gabapentin 300 mg capsule 12/19/19 Unknown History hydrocodone 5 mg-acetaminophen 325 12/19/19 Unknown History mg tablet hydroxyzine HCl 25 mg tablet 12/19/19 Unknown History levothyroxine 50 mcg tablet 12/19/19 Unknown History montelukast 10 mg tablet mg 12/19/19 Unknown History omeprazole 20 mg capsule,delayed 12/19/19 Unknown History release ropinirole 3 mg tablet mg 12/19/19 Unknown History sertraline 100 mg tablet mg 12/19/19 Unknown History ziprasidone HCl 60 mg capsule 12/19/19 12/19/19 Unknown History Allergies Allergy/AdvReac Type Severity Reaction Status Date / Time carbamazepine Allergy Unknown Rash Verified 01/31/25 10:55 Sulfa (Sulfonamide Allergy Unknown Rash Verified 01/31/25 10:55 Antibiotics) amoxicillin Allergy Rash Verified 01/31/25 10:55 cephalexin Allergy Rash Verified 01/31/25 10:55 ciprofloxacin Allergy Rash Verified 01/31/25 10:55 doxycycline AdvReac Rash Verified 01/31/25 10:55 Review of Systems 2 Review of Systems: As [facility] Past Medical History Medical History Asthma Diabetes mellitus Fecal incontinence Lumbar pain Morbid obesity Family History Family History Sibling Family history of rheumatoid arthritis Father Family history of congestive heart failure Other Diabetes mellitus Social History Social History Smoking status: Never smoker Alcohol intake: current Gender identity (if verbalized by the patient): Female Exam 2 Narrative: GENERAL: [Well-appearing, well-nourished, and in no acute distress.] HEAD: [Normocephalic, atraumatic.] EYES: [PERRLA and EOMI.] ENT: Nares clear, no rhinorrhea or epistaxis. Mucous membranes moist. NECK: Supple. CHEST: [Clear to auscultation. No respiratory distress.] HEART: [Regular rate and rhythm]. No murmur heard. [Normal peripheral pulses.] ABDOMEN: [Soft, nondistended], [nontender], [No rigidity or guarding] EXTREMITIES: Normal range of motion. [No edema.] SKIN: Scabs over the bilateral legs and hands otherwise warm and dry extremities without signs of infection NEURO: [No focal deficits]. Alert and oriented [x3.] PSYCH: [Normal mood and affect.] Course Vital Signs Vital signs: Vital Signs Temperature 36.3 C L 01/31/25 09:27 Pulse Rate 72 01/31/25 09:27 Respiratory Rate 18 01/31/25 09:27 Blood Pressure 111/63 01/31/25 09:27 Pulse Oximetry 100 01/31/25 09:27 Oxygen Delivery Room Air 01/31/25 09:27 Temperature 36.3 C L 01/31/25 09:27 Pulse Rate 57 L 01/31/25 13:32 Respiratory Rate 16 01/31/25 13:32 Blood Pressure 111/63 01/31/25 09:27 Pulse Oximetry 100 01/31/25 13:32 Oxygen Delivery Room Air 01/31/25 09:27 MDM - Weakness MDM Narrative Medical decision making narrative: 49-year-old female with history of fibromyalgia, peripheral neuropathy, previous gastric sleeve surgery presenting to the emergency depart with multiple complaints including jaw pain, bilateral lower extremity paresthesias, muscle spasms and twitching, and neuropathy and generalized malaise and fatigue. She is not any acute distress, ambulatory here in the emergency department with normal vital signs without any tachycardia, fever, hypoxia blood pressure concerns. Examination is unremarkable. Patient's vague complaints including muscles twitches and spasms and paresthesias could be related to electrolyte imbalances especially with her history of gastric surgery several years ago. Potential anemia causing her fatigue. The jaw pain seems unrelated but patient's primary care provider was concerned about potential cardiac causes given the jaw pain in a female. Workup was ordered including CBC, CMP, troponin, EKG and chest x-ray. Electrolyte studies and vitamin studies including benign and B12 as well as an iron deficiency panel ordered. Laboratory studies showed no leukocytosis or anemia. Normal platelet count. Electrolytes are all normal, normal renal function, normal hepatic function, normal glucose. Iron studies unremarkable, negative troponin. TSH is less than 0.015 but reflex T4 is 1.06 consistent with subclinical hyperthyroidism. Attempted to order a thyroid ultrasound for further evaluation but was informed by Radiology that this is done on outpatient basis and cannot be ordered in the emergency department. Remaining workup shows chest x-ray without any infiltrates or effusion. EKG without any ectopy or ST segment concerns. Patient is safe and stable for discharge given her unremarkable workup aside from subclinical hyperthyroidism which will have to be evaluated on outpatient basis. Medical Records Attestation: I reviewed the patient's medical records. Lab Data Attestation: I reviewed the patient's lab results. 01/31/25 12:56 01/31/25 12:56 Labs: Lab Results 01/31/25 01/31/25 Range/Units 12:56 12:56 WBC 6.1 (4.5-10.0) K/mm3 RBC 4.86 (4.2-5.4) M/mm3 Hgb 14.4 (12.0-15.0) g/dL Hct 43.7 (37.0-47.0) % MCV 89.9 (80-100) fl MCH 29.6 (26-34) pg MCHC 33.0 (32-36) g/dl RDW 12.3 (11.5-14.5) % Plt Count 226 (150-375) k/mm3 MPV 10.4 (7.4-10.4) fl Immature Gran % (Auto) 0.2 (0-0.5) % Neut % (Auto) 53.6 (45.5-73.1) % Lymph % (Auto) 34.8 (18.3-44.2) % [place] % (Auto) 8.7 H (2.6-8.5) % Eos % (Auto) 1.6 (0-4.4) % Baso % (Auto) 1.1 (0.2-1.2) % Lymph # (Auto) 2.12 (0.9-3.2) K/mm3 [place] # (Auto) 0.5 (0.1-0.6) K/mm3 Eos # (Auto) 0.1 (0-0.3) K/mm3 Baso # (Auto) 0.1 (0.0-0.1) K/mm3 Abs Immat Gran (auto) 0.01 (0.00-0.031) K/mm3 Absolute Neuts (auto) 3.3 (1.3-6.7) K/mm3 Absolute Nucleated RBC 0.000 (0.0-0.012) K/mm3 Nucleated RBC % 0.0 (0.0-0.2) % Sodium 142 (137-145) mmol/L Potassium 3.9 (3.4-5.0) mmol/L Chloride 108 H (98-107) mmol/L Carbon Dioxide 26 (22-30) mmol/L Anion Gap 8 (4-12) mmol/L BUN 9 (7-17) mg/dL Creatinine 0.64 L (0.7-1.0) mg/dL Estim Creat Clear Calc 76 ml/min Estimated GFR > 60 (59 - ) Glucose 68 (65-110) mg/dL Calcium 9.5 (8.4-10.2) mg/dL Magnesium 2.3 2.4 H (1.6-2.3) mg/dL Iron 105 (37-170) ug/dL TIBC 257 L (261-462) ug/dL % Saturation 41 (20-50) % Total Bilirubin 0.6 (0.2-1.3) mg/dL AST 48 H (14-36) U/L ALT 26 (6-35) U/L Alkaline Phosphatase 44 (38-126) U/L Troponin I < 0.012 (0.000-0.034) ng/mL Total Protein 6.9 (6.3-8.2) g/dL Albumin 4.3 (3.5-5.1) g/dL Vitamin B12 Pending Folate Pending TSH (Reflex) < 0.015 L (0.465-4.68) uIU/mL Free T4 1.06 (0.78-2.19) ng/dL Total T3 Pending Imaging Data Attestation: I personally reviewed and interpreted this imaging study as follows: My impression: Impressions Chest X-Ray 01/31/25 13:31 IMPRESSION: No focal infiltrate or effusion. Discharge Plan Discharge Clinical Impression: Subclinical hyperthyroidism Patient Disposition: Home Condition: Stable Instructions: Antibiotic Form, Subclinical Hyperthyroidism (ED) Additional Instructions: Your laboratory studies show a low TSH which is a sign of hyperthyroidism. Your remaining thyroid levels are normal which makes this subclinical in nature but can contribute to your symptoms. You will need to follow-up with your primary care provider about this and obtain a further workup which might include ultrasound of the thyroid gland itself which is located in the neck and could be causing the swelling and jaw discomfort but overall no urgent or emergent concerns are identified today and you can safely go home with outpatient primary follow-up for this. Patient Language: Lao Prescriptions: No Action cetirizine 10 mg tablet hydrocodone-acetaminophen 5-325 mg tablet ropinirole 3 mg tablet sertraline 100 mg tablet baclofen 10 mg tablet levothyroxine 50 mcg tablet gabapentin 300 mg capsule omeprazole 20 mg capsule,delayed release(DR/EC) montelukast 10 mg tablet hydroxyzine HCl 25 mg tablet ziprasidone HCl 60 mg capsule fluticasone propionate 50 mcg/actuation spray,suspension INTRANASAL duloxetine 20 mg capsule,delayed release(DR/EC) PO Pulmicort Flexhaler 90 mcg/actuation aerosol powdr breath activated INHALATION hydrocodone-acetaminophen [[place]] 5-325 mg tablet 1 tablet PO Q4H PRN (Reason: pain) Qty: 20 0RF doxycycline hyclate 100 mg capsule 100 mg PO BID Qty: 14 0RF albuterol sulfate 90 mcg/actuation HFA aerosol inhaler 4 inhalation INHALATION Q6H PRN (Reason: shortness of breath or wheezing) Qty: 6.7 0RF famotidine [Pepcid] 20 mg tablet 20 mg PO BID Qty: 20 0RF loratadine [Claritin] 10 mg tablet 10 mg PO DAILY PRN (Reason: allergy symptoms) Qty: 14 0RF cephalexin 500 mg capsule 500 mg PO Q6H 7 Days Qty: 28 0RF clindamycin HCl 300 mg capsule 300 mg PO Q6H 7 Days Qty: 28 0RF Follow-up/Referrals: UNKNOWN,DOCTOR [Primary Care Provider] - Stand Alone Forms: Work/School Release IP Time of Disposition: 15:14
[2025-01-31 13:08] LABS: Basophils Absolute Auto 0.1 K/mm3 (0.0-0.1); Basophils Percent Auto 1.1 % (0.2-1.2); Eosinophils Absolute Auto 0.1 K/mm3 (0-0.3); Eosinophils Percent Auto 1.6 % (0-4.4); Hematocrit 43.7 % (37.0-47.0); Hemoglobin 14.4 g/dL (12.0-15.0); Immature Granulocyte Absolute 0.01 K/mm3 (0.00-0.031); Immature Granulocyte Percent A 0.2 % (0-0.5); Lymphocytes Absolute Auto 2.12 K/mm3 (0.9-3.2); Lymphocytes Percent Auto 34.8 % (18.3-44.2); Mean Corpuscular Hemoglobin 29.6 pg (26-34); Mean Corpuscular Volume 89.9 fl (80-100); Mean Platelet Volume 10.4 fl (7.4-10.4); Monocytes Absolute Auto 0.5 K/mm3 (0.1-0.6); Monocytes Percent Auto 8.7 % (2.6-8.5); Neutrophils Absolute Auto 3.3 K/mm3 (1.3-6.7); Neutrophils Percent Auto 53.6 % (45.5-73.1); Platelet Count Result 226 k/mm3 (150-375); Red Blood Count 4.86 M/mm3 (4.2-5.4); Red Cell Distribution Width 12.3 % (11.5-14.5); White Blood Count 6.1 K/mm3 (4.5-10.0)
[2025-01-31 13:18] LABS: Magnesium 2.3 mg/dL (1.6-2.3)
[2025-01-31 13:25] LABS: Iron 105 ug/dL (37-170)
[2025-01-31 13:32] VITALS: PULSE 57; RESP 16; O2SAT 100
[2025-01-31 13:34] LABS: Percent Iron Saturation 41 % (20-50)
[2025-01-31 13:58] LABS: Thyroid Stimulating Hormone Reflex < 0.015 uIU/mL (0.465-4.68)
[2025-01-31 14:36] LABS: Alanine Aminotransferase 26 U/L (6-35); Albumin Level 4.3 g/dL (3.5-5.1); Alkaline Phosphatase 44 U/L (38-126); Anion Gap 8 mmol/L (4-12); Aspartate Amino Transferase 48 U/L (14-36); Bilirubin,Total 0.6 mg/dL (0.2-1.3); Blood Urea Nitrogen 9 mg/dL (7-17); Calcium 9.5 mg/dL (8.4-10.2); Carbon Dioxide 26 mmol/L (22-30); Chloride 108 mmol/L (98-107); Estimated CRCL calculation 76 ml/min; Estimated Glomerular Filt Rate > 60; Glucose 68 mg/dL (65-110); Magnesium 2.4 mg/dL (1.6-2.3); Potassium 3.9 mmol/L (3.4-5.0); Sodium 142 mmol/L (137-145); Total Protein 6.9 g/dL (6.3-8.2)
[2025-01-31 14:46] LABS: Free T4 Free Thyroxine Reflex 1.06 ng/dL (0.78-2.19)
[2025-01-31 14:47] LABS: Troponin I < 0.012 ng/mL (0.000-0.034)
[2025-01-31 15:43] LABS: Vitamin B12. > 1000.0 pg/mL (239-931)
== END 2025-01-31 15:22 | disposition home or self-care (01) ==
PROVIDERS: Emergency Provider Student in an Organized Health Care Education/Training Program
DX: E05.80 Other thyrotoxicosis without thyrotoxic crisis or storm (principal); E11.9 Type 2 diabetes mellitus without complications
CPT/HCPCS: 36415; 71045; 80053; 82607; 82746; 83540; 83550; 83735; 84439; 84443; 84480; 84484; 85025; 93005; 99284